=== PATIENT | male | born 1995 | race Caucasian/White ===

== ENCOUNTER 2016-09-03 22:16 | Observation (INO) | payer OTHER ==
[~2016-09-03] VITALS: Ht 182.9 cm; Wt 86.3 kg
[2016-09-03] MEDS ORDERED: NS IV 1000 ML 1,000 ML IV ONE (22:21)
[2016-09-03] MEDS ORDERED: ACTIVATED CHARCOAL/SORBITOL 50 G/240 ML BTL PO ONE (22:30)
[2016-09-03] MEDS ORDERED: TETANUS,DIPTH,PERTUSS P/F (BOOSTRIX) 0.5 ML VIAL IM ONE (22:30)
[2016-09-03 22:31] LABS: BASOPHILS % (AUTO) 1 % (0-10); EOSINOPHILS # (AUTO) 0.1 10^3/uL (0.0-0.3); EOSINOPHILS % (AUTO) 2 % (0-10); LYMPHOCYTES # (AUTO) 3.6 X 10^3 (1.0-4.0); LYMPHOCYTES % (AUTO) 41 % (12-44); MEAN CORPUSCULAR HEMOGLOBIN 30 PG (25-34); MEAN CORPUSCULAR HGB CONC 35 G/DL (32-36); MEAN CORPUSCULAR VOLUME 87 FL (80-99); MEAN PLATELET VOLUME 9.4 FL (7.4-10.4); MONOCYTES # (AUTO) 0.6 X 10^3 (0.0-1.0); MONOCYTES % (AUTO) 7 % (0-12); NEUTROPHILS # (AUTO) 4.4 X 10^3 (1.8-7.8); NEUTROPHILS % (AUTO) 50 % (42-75); PLATELET COUNT 248 10^3/uL (130-400); RED BLOOD COUNT 4.54 10^6/uL (4.35-5.85); RED CELL DISTRIBUTION WIDTH 13.9 % (10.0-14.5); WHITE BLOOD COUNT 8.8 10^3/uL (4.3-11.0)
--- NOTE | 2016-09-03 22:37 | ED Psychosocial ---
General Chief Complaint: Psych/Social Disorder Stated Complaint: laceration Nursing Triage Note: patient with self inflicted L wrist laceration, patient admits to drinking vodka, taking 3 klonopin, and an unknown amount aspirin. patient became beligerant with police and was tazed 3 times Source: patient, police, EMS History of Present Illness Time seen by provider: 22:12 Initial Comments PT ARRIVES VIA EMS WITH [facility] DEPUTY POLICE WERE CALLED FOR A "SUSPICIOUS INDIVIDUAL" WALKING BEHIND THE [facility]-- PT STATED TO THEM HE WAS THERE TO SEE HIS "EX" WHO WORKS THERE, AND WAS CAUSING PROBLEMS THERE ON THEIR ARRIVAL, PT HAD BOTTLE OF VODKA AND DRANK 750 ML IN FRONT OF POLICE. CLAIMS HE "NEVER" DRINKS PT THEN TOOK OUT A KNIFE AND CUT HIS LEFT WRIST AND INDEX FINGER PT BECAME VERY BELLIGERANT WITH THE POLICE AND WAS THEN TAZED AT LEAST 3 TIMES, WITH 5 PRONGS EMBEDDED--2 IN RIGHT ARM, 2 ON BACK, 1 ON RIGHT CALF PT ALSO STATES HE TOOK "4-5 BOTTLES OF ASPIRIN" IMMEDIATELY PRIOR TO THIS WELL--4-5 LOOSE ASPIRIN PILLS WERE FOUND IN PT'S POCKET BY [facility] DEPUTIES-- SIZE OF BOTTLE IS UNKNOWN, OR HOW MANY PILLS WERE IN EACH BOTTLE PT ALSO STATES HE TOOK 3 KLONOPIN WITH THE ASPIRIN. PT ADMITS THAT HE WAS TRYING TO KILL HIMSELF,AND WAS ALREADY FEELING THIS WAY, AND THEN WHEN DEPUTIES ARRIVED, IT ESCALATED HIS INTENT TO HARM HIMSELF. PT IS CURRENTLY UNDER ARREST, AND IS IN HANDCUFFS. PT STATES HE JUST [facility] [place] 3 DAYS AGO , AND HAS BEEN IN MULTIPLE OTHER TREATMENT CENTERS INCLUDING SEVERAL ADMITS TO [facility]. Allergies and Home Medications Allergies Coded Allergies: No Known Drug Allergies (Unverified , 09/03/16) Constitutional: no symptoms reported, other EENTM: no symptoms reported Respiratory: no symptoms reported Cardiovascular: no symptoms reported Gastrointestinal: no symptoms reported Genitourinary: no symptoms reported Musculoskeletal: no symptoms reported Skin: see HPI Psychiatric/Neurological: See HPI Past Ltuxxqb-Lndcas-Jszjvz Hx Patient Social History Alcohol Use: Rarely Uses Recreational Drug Use: Yes (METH, BENZO'S, "OPIATES"--DENIES IV USE) Drug of Choice: meth, benzos Smoking Status: Current Everyday Smoker (1 PPD) Type Used: Cigarettes Recent Foreign Travel: No Contact w/Someone Who Travel: No Recent Infectious Disease Expo: No Recent Hopitalizations: No Immunizations Up To Date Tetanus Booster (TDap): Unknown Seasonal Allergies Seasonal Allergies: No Surgeries HX Surgeries: No Respiratory Hx Respiratory Disorders: No Cardiovascular Hx Cardiac Disorders: No Neurological Hx Neurological Disorders: No Reproductive System Hx Reproductive Disorders: No Genitourinary Hx Genitourinary Disorders: No Gastrointestinal Hx Gastrointestinal Disorders: No Musculoskeletal Hx Musculoskeletal Disorders: No Endocrine Hx Endocrine Disorders: No HEENT HX ENT Disorders: No Cancer Hx Cancer: No Psychosocial Hx Psychiatric Problems: Yes (POLYSUBSTANCE ABUSE) Integumentary HX Skin/Integumentary Disorder: No Blood Transfusions Hx Blood Disorders: No Physical Exam Vital Signs Vital Sign - Last 12Hours 09/03/16 09/04/16 22:19 01:00 Temp 98.3 Pulse 104 Resp 16 B/P (MAP) 128/78 Pulse Ox 96 O2 Delivery Room Air Capillary Refill : Less Than 3 Seconds General Appearance: WD/WN, no apparent distress, other (EXTREMELY MALODOROUS, AND FILTHY. PT IS SOMEWHAT DROWSY, BUT SPEECH IS CLEAR AND PT IS ORIENTED X 4) HEENT: PERRL/EOMI, other (POOR DENTITION) Neck: non-tender, full range of motion, supple, normal inspection Respiratory: normal breath sounds, no respiratory distress, no accessory muscle use Cardiovascular: normal peripheral pulses, regular rate, rhythm, no murmur Gastrointestinal: normal bowel sounds, non tender, soft Extremities: normal range of motion, no pedal edema, normal capillary refill, other (3 CM SUPERFICIAL LACERATION TO LEFT ANTERIOR WRIST, AND 2 CM SUPERFICIAL LACERATION TO DORSAL ASPECT OF LEFT INDEX FINGER. BLEEDING CONTROLLED WITH DRESSING AT THIS TIME. MOTOR/SENSORY/VASCULAR INTACT. ) Neurologic/Psychiatric: director of ancillary services II-XII nml as tested, no motor/sensory deficits, alert, oriented x 3 Appearance/Memory: no memory impairment, disheveled, other (FILTHY AND EXTREMELY MALODOROUS) Behavior/Eye Contact: cooperative, normal speech Thoughts/Hallucinations: no apparent hallucination, No delusions, No flight of ideas, No grandiose, No incoherent, No obsessive, No paranoid, No persecution, No phobic, No jain, other (SUICIDAL IDEATION) Skin: normal color, warm/dry, other (LACERATIONS NOTED ABOVE) Laceration Repair : Other Wound Location LEFT ANTERIOR WRIST 3 CM AND LEFT INDEX FINGER 2 CM--BOTH SUPERFICIAL Wound's Depth, Shape: superficial, linear Wound Explored: clean Betadine Prep?: No (BETASEPT) Anesthesia: Lidocaine w/ Epi (2%) Staple Repair: Stapler 35W (#6 TO WRIST, #2 TO FINGER) Sterile Dressing Applied?: Yes Progress/Results/Core Measures Results/Orders Lab Results Laboratory Tests Test 09/03/16 22:21 09/03/16 23:13 09/04/16 00:15 09/04/16 02:23 Range/Units White Blood Count 8.8 4.3-11.0 10^3/uL Red Blood Count 4.54 4.35-5.85 10^6/uL Hemoglobin 13.6 13.3-17.7 G/DL Hematocrit 39 L 40-54 % Mean Corpuscular Volume 87 80-99 FL Mean Corpuscular Hemoglobin 30 25-34 PG Mean Corpuscular Hemoglobin Concent 35 32-36 G/DL Red Cell Distribution Width 13.9 10.0-14.5 % Platelet Count 248 130-400 10^3/uL Mean Platelet Volume 9.4 7.4-10.4 FL Neutrophils (%) (Auto) 50 42-75 % Lymphocytes (%) (Auto) 41 12-44 % Monocytes (%) (Auto) 7 0-12 % Eosinophils (%) (Auto) 2 0-10 % Basophils (%) (Auto) 1 0-10 % Neutrophils # (Auto) 4.4 1.8-7.8 X 10^3 Lymphocytes # (Auto) 3.6 1.0-4.0 X 10^3 Monocytes # (Auto) 0.6 0.0-1.0 X 10^3 Eosinophils # (Auto) 0.1 0.0-0.3 10^3/uL Basophils # (Auto) 0.0 0.0-0.1 10^3/uL Prothrombin Time 13.7 12.2-14.7 SEC INR Comment 1.1 0.8-1.4 Activated Partial Thromboplast Time 30 24-35 SEC Sodium Level 141 143 135-145 MMOL/L Potassium Level 3.6 3.6 3.6-5.0 MMOL/L Chloride Level 107 109 H 98-107 MMOL/L Carbon Dioxide Level 20 L 20 L 21-32 MMOL/L Anion Gap 14 14 5-14 MMOL/L Blood Urea Nitrogen 12 11 7-18 MG/DL Creatinine 0.80 0.78 0.60-1.30 MG/DL Estimat Glomerular Filtration Rate > 60 > 60 BUN/Creatinine Ratio 15 14 0-20 Glucose Level 95 102 70-105 MG/DL Calcium Level 8.7 8.7 8.5-10.1 MG/DL Magnesium Level 2.5 H 1.8-2.4 MG/DL Total Bilirubin 0.5 0.4 0.1-1.0 MG/DL Aspartate Amino Transf (AST/SGOT) 49 H 50 H 5-34 U/L Alanine Aminotransferase (ALT/SGPT) 22 21 0-55 U/L Alkaline Phosphatase 93 89 40-136 U/L Total Protein 7.6 7.5 6.4-8.2 GM/DL Albumin 4.0 4.0 3.2-4.5 GM/DL Amylase Level 33 25-125 U/L TSH [place] Testing 0.55 0.35-4.94 UIU/ML Salicylates Level 16.1 20.7 H 5.0-20.0 MG/DL Acetaminophen Level < 10 L 10-30 UG/ML Serum Alcohol 90 H 54 H <10 MG/DL Urine Color YELLOW Urine Clarity CLEAR Urine pH 6 5-9 Urine Specific [place] 1.010 L 1.016-1.022 Urine Protein 1+ H NEGATIVE Urine Glucose (UA) NEGATIVE NEGATIVE Urine Ketones NEGATIVE NEGATIVE Urine Nitrite NEGATIVE NEGATIVE Urine Bilirubin NEGATIVE NEGATIVE Urine Urobilinogen NORMAL NORMAL MG/DL Urine Leukocyte Esterase NEGATIVE NEGATIVE Urine RBC (Auto) 1+ H NEGATIVE Urine RBC NONE /HPF Urine WBC NONE /HPF Urine Squamous Epithelial Cells RARE /HPF Urine Crystals NONE /LPF Urine Bacteria NEGATIVE /HPF Urine Casts PRESENT /LPF Urine Hyaline Casts 0-2 H /LPF Urine Mucus SMALL H /LPF Urine Culture Indicated NO Urine Opiates Screen NEGATIVE NEGATIVE Urine Oxycodone Screen NEGATIVE NEGATIVE Urine Methadone Screen NEGATIVE NEGATIVE Urine Propoxyphene Screen NEGATIVE NEGATIVE Urine Barbiturates Screen NEGATIVE NEGATIVE Ur Tricyclic Antidepressants Screen NEGATIVE NEGATIVE Urine Phencyclidine Screen NEGATIVE NEGATIVE Urine Amphetamines Screen NEGATIVE NEGATIVE Urine Methamphetamines Screen NEGATIVE NEGATIVE Urine Benzodiazepines Screen NEGATIVE NEGATIVE Urine Cocaine Screen NEGATIVE NEGATIVE Urine Cannabinoids Screen NEGATIVE NEGATIVE My Orders Orders - TANA MORALES DO Ua Culture If Indicated (09/03/16 22:21) Thyroid Analyzer (09/03/16 22:21) Drug Screen Stat (Urine) (09/03/16 22:21) Cbc With Automated Diff (09/03/16 22:21) Comprehensive Metabolic Panel (09/03/16 22:21) Amylase (09/03/16 22:21) Alcohol (09/03/16 22:21) Acetaminophen (09/03/16 22:21) Salicylate (09/03/16 22:21) Ekg Tracing (09/03/16 22:21) Monitor-Rhythm Ecg Trace Only (09/03/16 22:21) Magnesium (09/03/16 22:21) Protime With Inr (09/03/16 22:21) Partial Thromboplastin Time (09/03/16 22:21) Saline Lock/Iv-Start (09/03/16 22:21) Ns Iv 1000 Ml (Sodium Chloride 0.9%) (09/03/16 22:21) Dipht,Pertuss(Acell),Tet Adult (Boostrix (09/03/16 22:30) Charcoal/Sorbitol Oral Susp (Actidose/So (09/03/16 22:30) Lidocaine/Epi 2% 1:100,000 (Xylocaine/Ep (09/03/16 23:45) Comprehensive Metabolic Panel (09/04/16 00:02) Salicylate (09/04/16 00:02) Alcohol (09/04/16 00:02) Wound Dressing-Ed (09/04/16 00:11) Medications Given in ED Current Medications Medications Dose Ordered Sig/Zeus Route Start Time Stop Time Status Last Admin Dose Admin Charcoal/Sorbitol 50 gm ONCE ONCE PO 09/03/16 22:30 09/03/16 22:31 DC 09/03/16 22:30 50 GM Diphtheria/ Tetanus/Acell Pertussis 0.5 ml ONCE ONCE IM 09/03/16 22:30 09/03/16 22:31 DC 09/03/16 23:32 0.5 ML Lidocaine/ Epinephrine 20 ml ONCE ONCE INJ 09/03/16 23:45 09/03/16 23:46 DC 09/03/16 23:50 5 ML Vital Signs/I&O Vital Sign - Last 12Hours 09/03/16 09/04/16 09/04/16 09/04/16 22:19 00:49 01:00 01:04 Temp 98.3 Pulse 104 88 82 Resp 16 16 B/P (MAP) 128/78 Pulse Ox 96 97 99 O2 Delivery Room Air Blood Pressure Mean: 95 Progress Note : Progress Note [facility] DEPUTIES HAD CALLED [facility] MENTAL HEALTH FROM THE SCENE , AND STAFF MEMBER IS HERE AT 2226--SHE IS UNABLE TO DO A MENTAL HEALTH EVALUATION AT THIS TIME, PT IS UNDER THE INFLUENCE OF ALCOHOL AND HAS OVERDOSED. SHE WILL CONSULT PT WHILE IN HOSPITAL TOMORROW, AFTER HE HAS BEEN MEDICALLY CLEARED 0--PT IS BEING RELEASED FROM CUSTODY AT THIS TIME. PT SLEPT FOR MOST OF ER STAY. AWAKENS TO VERBAL AND TACTILE STIMULI NO DETERIORATION IN PT'S CONDITION DURING ER STAY POISON CONTROL WAS CONTACTED AND RECOMMENDATIONS FOR CHARCOAL TO BE GIVEN AND SERIAL LAB DRAWS EVERY 2 HOURS FOR SALICYLATES AND METABOLIC PANEL WILL BE CARRIED OUT. ECG Initial ECG Impression Time: 23:35 Initial ECG Rate: 97 Initial ECG Rhythm: Normal Sinus Initial ECG Comparisson: No Previous ECG Available Departure Communication Progress Notes [id number]--SPOKE WITH DR. GUZMAN, ACCEPTS PT FOR ADMIT Impression Impression: Primary Impression: SUICIDE ATTEMPT Additional Impressions: INTENTIONAL DRUG OVERDOSE--ASPIRIN Alcohol intoxication SELF INFLICTED LACERATIONS TO LEFT WRIST AND INDEX FINGER Mdlhqyxroc-smolribgc-pnojtkb (DPT) vaccination administered at current visit Disposition: ADMITTED INPATIENT Condition: Stable Decision to Admit Reason: Admit from ER (General) Decision to Admit/Date: Sep 03, 2016 Time/Decision to Admit Time: 23:55 Departure-Patient Inst. Referrals: NO,LOCAL PHYSICIAN (PCP) Primary Care Physician Images Extremities-Upper 1 - Laceration 1 - Laceration TANA MORALES DO Sep 03, 2016 22:37
[2016-09-03 22:38] LABS: INR 1.1 (0.8-1.4); PROTHROMBIN TIME PATIENT 13.7 SEC (12.2-14.7)
[2016-09-03 23:07] LABS: ACETAMINOPHEN < 10 UG/ML (10-30); ALANINE AMINOTRANSFERASE 22 U/L (0-55); ALCOHOL 90 MG/DL (<10); AMYLASE 33 U/L (25-125); ANION GAP 14 MMOL/L (5-14); ASPARTATE AMINO TRANSFERASE 49 U/L (5-34); BILIRUBIN,TOTAL 0.5 MG/DL (0.1-1.0); BLOOD UREA NITROGEN 12 MG/DL (7-18); BUN/CREATININE RATIO 15 (0-20); CALCIUM 8.7 MG/DL (8.5-10.1); CARBON DIOXIDE 20 MMOL/L (21-32); CHLORIDE 107 MMOL/L (98-107); GFR ESTIMATED > 60; GLUCOSE 95 MG/DL (70-105); HEMOLYSIS 21 (-100-29); ICTERUS 0.7 (-100-1.9); LIPEMIA 12 (-100-49); MAGNESIUM 2.5 MG/DL (1.8-2.4); POTASSIUM 3.6 MMOL/L (3.6-5.0); SALICYLATE 16.1 MG/DL (5.0-20.0); SODIUM 141 MMOL/L (135-145); TOTAL PROTEIN 7.6 GM/DL (6.4-8.2)
[2016-09-03 23:29] LABS: BILIRUBIN,URINE NEGATIVE (NEGATIVE); KETONES,URINE NEGATIVE (NEGATIVE); LEUKOCYTE ESTERASE ,URINE NEGATIVE (NEGATIVE); NITRITE,URINE NEGATIVE (NEGATIVE); PH,URINE 6 (5-9); PROTEIN,URINE 1+ (NEGATIVE); UROBILINOGEN,URINE NORMAL (NORMAL)
[2016-09-03 23:43] LABS: HYALINE CASTS, URINE 0-2 /LPF; SQUAMOUS EPITHELIAL CELL,UR RARE /HPF
[2016-09-03] MEDS ORDERED: LIDOCAINE/EPI 2% 1:100,00 (XYLOCAINE) 20 ML VIAL INJ ONE (23:45)
[2016-09-04] VITALS (22 sets, daily range): BP systolic 105–183; BP diastolic 44–84
[2016-09-04 00:40] LABS: ALANINE AMINOTRANSFERASE 21 U/L (0-55); ALCOHOL 54 MG/DL (<10); ANION GAP 14 MMOL/L (5-14); ASPARTATE AMINO TRANSFERASE 50 U/L (5-34); BILIRUBIN,TOTAL 0.4 MG/DL (0.1-1.0); BLOOD UREA NITROGEN 11 MG/DL (7-18); BUN/CREATININE RATIO 14 (0-20); CALCIUM 8.7 MG/DL (8.5-10.1); CARBON DIOXIDE 20 MMOL/L (21-32); CHLORIDE 109 MMOL/L (98-107); CREATININE SERUM 0.78 MG/DL (0.60-1.30); GFR ESTIMATED > 60; GLUCOSE 102 MG/DL (70-105); HEMOLYSIS 16 (-100-29); ICTERUS 0.5 (-100-1.9); LIPEMIA 5 (-100-49); POTASSIUM 3.6 MMOL/L (3.6-5.0); SALICYLATE 20.7 MG/DL (5.0-20.0); SODIUM 143 MMOL/L (135-145); TOTAL PROTEIN 7.5 GM/DL (6.4-8.2)
[2016-09-04] MEDS ORDERED: D5 1/2 NS 1000 ML IV SOLUTION 1,000 ML IV ONE (00:59)
[2016-09-04] MEDS: D5 1/2 NS 1000 ML IV SOLUTION 1,000 ML IV SCH ×3 (01:15→14:51)
[2016-09-04 02:49] LABS: ALANINE AMINOTRANSFERASE 22 U/L (0-55); ANION GAP 13 MMOL/L (5-14); ASPARTATE AMINO TRANSFERASE 52 U/L (5-34); BILIRUBIN,TOTAL 0.5 MG/DL (0.1-1.0); BLOOD UREA NITROGEN 11 MG/DL (7-18); BUN/CREATININE RATIO 14 (0-20); CALCIUM 8.8 MG/DL (8.5-10.1); CARBON DIOXIDE 21 MMOL/L (21-32); CHLORIDE 109 MMOL/L (98-107); GFR ESTIMATED > 60; GLUCOSE 101 MG/DL (70-105); HEMOLYSIS 8 (-100-29); ICTERUS 0.5 (-100-1.9); LIPEMIA 4 (-100-49); POTASSIUM 3.5 MMOL/L (3.6-5.0); SALICYLATE 19.9 MG/DL (5.0-20.0); SODIUM 143 MMOL/L (135-145); TOTAL PROTEIN 7.5 GM/DL (6.4-8.2)
[2016-09-04] MEDS ORDERED: POTASSIUM CL 10MEQ/50ML IVPB 200 ML IV ONE (03:36)
[2016-09-04] MEDS: POTASSIUM CL 10MEQ/50ML IVPB 50 ML IV SCH ×5 (03:47→07:16)
[2016-09-04 04:50] LABS: BASOPHILS % (AUTO) 0 % (0-10); EOSINOPHILS # (AUTO) 0.1 10^3/uL (0.0-0.3); EOSINOPHILS % (AUTO) 1 % (0-10); LYMPHOCYTES % (AUTO) 47 % (12-44); MEAN CORPUSCULAR HEMOGLOBIN 30 PG (25-34); MEAN CORPUSCULAR HGB CONC 34 G/DL (32-36); MEAN CORPUSCULAR VOLUME 88 FL (80-99); MEAN PLATELET VOLUME 9.7 FL (7.4-10.4); MONOCYTES # (AUTO) 0.9 X 10^3 (0.0-1.0); MONOCYTES % (AUTO) 10 % (0-12); NEUTROPHILS # (AUTO) 3.5 X 10^3 (1.8-7.8); NEUTROPHILS % (AUTO) 41 % (42-75); PLATELET COUNT 259 10^3/uL (130-400); RED BLOOD COUNT 4.61 10^6/uL (4.35-5.85); RED CELL DISTRIBUTION WIDTH 14.1 % (10.0-14.5); WHITE BLOOD COUNT 8.5 10^3/uL (4.3-11.0)
[2016-09-04 05:18] LABS: MAGNESIUM 2.8 MG/DL (1.8-2.4); PHOSPHORUS 4.3 MG/DL (2.3-4.7)
[2016-09-04 05:19] LABS: ALANINE AMINOTRANSFERASE 21 U/L (0-55); ANION GAP 11 MMOL/L (5-14); ASPARTATE AMINO TRANSFERASE 52 U/L (5-34); BILIRUBIN,TOTAL 0.5 MG/DL (0.1-1.0); BLOOD UREA NITROGEN 10 MG/DL (7-18); BUN/CREATININE RATIO 11 (0-20); CALCIUM 8.8 MG/DL (8.5-10.1); CARBON DIOXIDE 23 MMOL/L (21-32); CHLORIDE 110 MMOL/L (98-107); CREATININE SERUM 0.89 MG/DL (0.60-1.30); GFR ESTIMATED > 60; GLUCOSE 102 MG/DL (70-105); HEMOLYSIS 7 (-100-29); ICTERUS 0.6 (-100-1.9); LIPEMIA 5 (-100-49); SALICYLATE 22.9 MG/DL (5.0-20.0); SODIUM 144 MMOL/L (135-145); TOTAL PROTEIN 7.4 GM/DL (6.4-8.2)
[2016-09-04] MEDS: MAGNESIUM 1 GM/100 ML IVPB 100 ML IV SCH (06:00)
[2016-09-04] MEDS: KCL 20 MEQ TAB (K-DUR) PO SCH ×2 (06:00→21:03)
[2016-09-04 06:52] LABS: ALANINE AMINOTRANSFERASE 21 U/L (0-55); ALBUMIN 3.9 GM/DL (3.2-4.5); ANION GAP 11 MMOL/L (5-14); ASPARTATE AMINO TRANSFERASE 51 U/L (5-34); BILIRUBIN,TOTAL 0.4 MG/DL (0.1-1.0); BLOOD UREA NITROGEN 10 MG/DL (7-18); BUN/CREATININE RATIO 10 (0-20); CALCIUM 8.6 MG/DL (8.5-10.1); CARBON DIOXIDE 20 MMOL/L (21-32); CHLORIDE 112 MMOL/L (98-107); CREATININE SERUM 0.99 MG/DL (0.60-1.30); GFR ESTIMATED > 60; GLUCOSE 101 MG/DL (70-105); HEMOLYSIS 10 (-100-29); ICTERUS 0.5 (-100-1.9); LIPEMIA 2 (-100-49); POTASSIUM 4.2 MMOL/L (3.6-5.0); SODIUM 143 MMOL/L (135-145); TOTAL PROTEIN 7.2 GM/DL (6.4-8.2)
[2016-09-04 06:54] LABS: SALICYLATE 35.9 MG/DL (5.0-20.0)
[2016-09-04] MEDS ORDERED: SODIUM BICARB 8.4% 50 MEQ/50 ML (ABBOTT) SYR IV NR (07:15)
[2016-09-04] MEDS: SODIUM BICARBONATE 8.4% VIAL 150 MEQ in D5W 1000 ML IV SOLUTION 1,000 ML IV SCH ×2 (07:54→18:38)
[2016-09-04 08:30] LABS: ABG BASE EXCESS 2.2 MMOL/L (-2.5-2.5); ABG HCO3 26 MMOL/L (23-27); ABG OXYGEN SATURATION 99 % (94-100); ABG PCO2 35 MMHG (35-45); ABG PH 7.48 (7.37-7.43); ABG PO2 112 MMHG (79-93); ABG TCO2 26.6 MMOL/L (21.0-31.0)
[2016-09-04 08:31] LABS: ALLENS TEST YES-POS; PATIENT TEMP 98.6
[2016-09-04 08:48] LABS: ALANINE AMINOTRANSFERASE 20 U/L (0-55); ALBUMIN 3.6 GM/DL (3.2-4.5); ANION GAP 10 MMOL/L (5-14); ASPARTATE AMINO TRANSFERASE 48 U/L (5-34); BILIRUBIN,TOTAL 0.4 MG/DL (0.1-1.0); BLOOD UREA NITROGEN 10 MG/DL (7-18); BUN/CREATININE RATIO 11 (0-20); CALCIUM 8.1 MG/DL (8.5-10.1); CARBON DIOXIDE 24 MMOL/L (21-32); CHLORIDE 111 MMOL/L (98-107); CREATININE SERUM 0.95 MG/DL (0.60-1.30); GFR ESTIMATED > 60; GLUCOSE 96 MG/DL (70-105); HEMOLYSIS 28 (-100-29); ICTERUS 0.4 (-100-1.9); LIPEMIA 3 (-100-49); POTASSIUM 4.1 MMOL/L (3.6-5.0); SODIUM 145 MMOL/L (135-145); TOTAL PROTEIN 6.8 GM/DL (6.4-8.2)
[2016-09-04 08:50] LABS: SALICYLATE 33.6 MG/DL (5.0-20.0)
[2016-09-04 10:52] LABS: ALANINE AMINOTRANSFERASE 20 U/L (0-55); ALBUMIN 3.6 GM/DL (3.2-4.5); ANION GAP 9 MMOL/L (5-14); ASPARTATE AMINO TRANSFERASE 46 U/L (5-34); BILIRUBIN,TOTAL 0.4 MG/DL (0.1-1.0); BLOOD UREA NITROGEN 11 MG/DL (7-18); BUN/CREATININE RATIO 13 (0-20); CALCIUM 8.2 MG/DL (8.5-10.1); CARBON DIOXIDE 26 MMOL/L (21-32); CHLORIDE 110 MMOL/L (98-107); CREATININE SERUM 0.87 MG/DL (0.60-1.30); GFR ESTIMATED > 60; GLUCOSE 97 MG/DL (70-105); HEMOLYSIS 10 (-100-29); ICTERUS 0.5 (-100-1.9); LIPEMIA 2 (-100-49); POTASSIUM 3.6 MMOL/L (3.6-5.0); SODIUM 145 MMOL/L (135-145); TOTAL PROTEIN 6.7 GM/DL (6.4-8.2)
[2016-09-04 10:53] LABS: SALICYLATE 30.2 MG/DL (5.0-20.0)
[2016-09-04 10:56] LABS: BILIRUBIN,URINE NEGATIVE (NEGATIVE); KETONES,URINE NEGATIVE (NEGATIVE); LEUKOCYTE ESTERASE ,URINE NEGATIVE (NEGATIVE); NITRITE,URINE NEGATIVE (NEGATIVE); PH,URINE 7 (5-9); PROTEIN,URINE 1+ (NEGATIVE); UROBILINOGEN,URINE NORMAL (NORMAL)
[2016-09-04 11:35] LABS: ABG BASE EXCESS 1.2 MMOL/L (-2.5-2.5); ABG HCO3 24 MMOL/L (23-27); ABG OXYGEN SATURATION 99 % (94-100); ABG PCO2 33 MMHG (35-45); ABG PH 7.49 (7.37-7.43); ABG PO2 104 MMHG (79-93); ABG TCO2 25.3 MMOL/L (21.0-31.0)
[2016-09-04 11:36] LABS: ALLENS TEST YES-POS
--- NOTE | 2016-09-04 12:01 | Diagnostic Imaging Report ---
INDICATION: Short of air. FINDINGS: Upright portable chest shows normal heart size and vascularity. The lungs are clear. There is no effusion or pneumothorax. There is no bony abnormality. IMPRESSION: Normal chest. There is no change from 04/13/12. Dictated by: Dictated on workstation # [id number]
[2016-09-04 12:55] LABS: ALANINE AMINOTRANSFERASE 20 U/L (0-55); ALBUMIN 3.7 GM/DL (3.2-4.5); ANION GAP 9 MMOL/L (5-14); ASPARTATE AMINO TRANSFERASE 49 U/L (5-34); BILIRUBIN,TOTAL 0.4 MG/DL (0.1-1.0); BLOOD UREA NITROGEN 12 MG/DL (7-18); BUN/CREATININE RATIO 14 (0-20); CALCIUM 8.4 MG/DL (8.5-10.1); CARBON DIOXIDE 25 MMOL/L (21-32); CHLORIDE 109 MMOL/L (98-107); CREATININE SERUM 0.84 MG/DL (0.60-1.30); GFR ESTIMATED > 60; GLUCOSE 90 MG/DL (70-105); HEMOLYSIS 6 (-100-29); ICTERUS 0.5 (-100-1.9); LIPEMIA 4 (-100-49); POTASSIUM 3.6 MMOL/L (3.6-5.0); SALICYLATE 27.1 MG/DL (5.0-20.0); SODIUM 143 MMOL/L (135-145)
--- NOTE | 2016-09-04 13:06 | History & Physical-Hospitalist ---
HPI History of Present Illness: HPI/Chief Complaint CC: Acute alcohol intoxication with suicide attempt by swallowing a bottle of aspirin and 3 Klonopin and cutting himself with a knife on his wrist HPI: This is a 21-year-old -Malaysian male that has a known history of drug abuse and alcohol intoxication who presents to the emergency room in custody and handcuffed due to void during around [facility] trying to find his girlfriend who he has 2 children with ages 2 and 1 bit was tased by police officers due to belligerent behavior and was drinking vodka in front of them then reported that he felt like killing himself and took a knife out and cut his wrist and index finger. He took a full bottle of aspirin so poison control was notified he was given charcoal and will be closely monitoring that salicylate level and maintaining bicarbonate in the IV fluids and checking urine acidity to facilitate clearing of that overdose. Currently he denies any pain he does have a one-on-one sitter for suicidal ideation and will be monitored closely and support until mental health screening will ensue tomorrow. Source: patient Exam Limitations: no limitations Date Seen 09/04/16 Time Seen by Provider: 11:00 Attending Physician Katelin Tejada DO PCP No,Local Physician Referring Physician Date of Admission Sep 03, 2016 at 23:55 Home Medications & Allergies Home Medications Reviewed patient Home Medication Reconciliation Form Allergies Allergies Coded Allergies No Known Drug Allergies (Unverified09/03/16) Past Ukhewap-Nreesu-Lehofb Hx Patient Social History Marrital Status: single Employed/Student: unemployed Alcohol Use: Rarely Uses Recreational Drug Use: Yes (METH, BENZO'S, "OPIATES"--DENIES IV USE) Drug of Choice: meth, benzos Smoking Status: Current Everyday Smoker (1 PPD) Type Used: Cigarettes Physical Abuse Screen: No Sexual Abuse: No Recent Foreign Travel: No Contact w/other who traveled: No Recent Hopitalizations: No Recent Infectious Disease Expo: No Immunizations Up To Date Tetanus Booster (TDap): Unknown Seasonal Allergies Seasonal Allergies: No Surgeries HX Surgeries: No Respiratory Hx Respiratory Disorders: No Cardiovascular Hx Cardiovascular Disorders: No Neurological Hx Neurological Disorders: No Reproductive System Hx Reproductive Disorders: No Genitourinary Hx Genitourinary Disorders: No Gastrointestinal Hx Gastrointestinal Disorders: No Musculoskeletal Hx Musculoskeletal Disorders: No Endocrine Hx Endocrine Disorders: No HEENT HX ENT Disorders: No Cancer Hx Cancer: No Psychosocial Hx Psychiatric Problems: Yes (POLYSUBSTANCE ABUSE) Integumentary HX Skin/Integumentary Disorder: No Blood Transfusions Hx Blood Disorders: No Review of Systems Date Seen by Provider: Sep 04, 2016 Time Seen by Provider: 11:00 Constitutional: no symptoms reported EENTM: no symptoms reported Respiratory: no symptoms reported Cardiovascular: no symptoms reported Gastrointestinal: no symptoms reported Genitourinary: no symptoms reported Musculoskeletal: no symptoms reported Skin: no symptoms reported Psychiatric/Neurological: Depressed All Other Systems Reviewed Negative Unless Noted: Yes Physical Exam Physical Exam Vital Signs Vital Sign - Last 12Hours 09/03/16 22:19 Temp 98.3 Pulse 104 Resp 16 B/P (MAP) 128/78 Pulse Ox 96 Capillary Refill : Less Than 3 Seconds General Appearance: No Apparent Distress, WD/WN Eyes: Bilateral Eye Normal Inspection, Bilateral Eye PERRL HEENT: PERRL/EOMI, Normal ENT Inspection, Pharynx Normal Neck: Full Range of Motion, Normal Inspection, Non Tender, Supple, Carotid Bruit Respiratory: Chest Non Tender, Lungs Clear, Normal Breath Sounds, No Accessory Muscle Use, No Respiratory Distress Cardiovascular: Regular Rate, Rhythm, No Edema, No Gallop, No JVD, No Murmur, Normal Peripheral Pulses Gastrointestinal: Normal Bowel Sounds, No Organomegaly, No Pulsatile Mass, Non Tender, Soft Back: Normal Inspection, No CVA Tenderness, No Vertebral Tenderness Extremity: Normal Capillary Refill, Normal Inspection, Normal Range of Motion, Non Tender, No Calf Tenderness, No Pedal Edema Neurologic/Psychiatric: Alert, Oriented x3, No Motor/Sensory Deficits, Normal Mood/Affect Skin: Normal Color, Warm/Dry Lymphatic: No Adenopathy Results Results/Procedures Lab Laboratory Tests 09/03/16 22:21 09/04/16 00:15 09/04/16 02:23 09/04/16 04:22 09/04/16 06:27 09/04/16 08:21 09/04/16 10:24 09/04/16 12:29 Assessment/Plan Admission Diagnosis Assessment: Suicide attempt with a bottle of aspirin 3 Klonopin with vodka and attempted to cut his wrist with a knife History of drug abuse and alcohol abuse Assessment and Plan Plan: Maintain IV fluids with bicarbonate to facilitate salicylate overdose clearance Supportive care Clinical Quality Measures DVT/VTE Risk/Contraindication: Risk Factor Score Per Nursin RFS Level Per Nursing on Admit: 1=Low/No VTE PPX KATELIN TEJADA DO Sep 04, 2016 13:06
[2016-09-04 18:07] LABS: ALANINE AMINOTRANSFERASE 19 U/L (0-55); ALBUMIN 3.6 GM/DL (3.2-4.5); ANION GAP 8 MMOL/L (5-14); ASPARTATE AMINO TRANSFERASE 42 U/L (5-34); BILIRUBIN,TOTAL 0.5 MG/DL (0.1-1.0); BLOOD UREA NITROGEN 13 MG/DL (7-18); BUN/CREATININE RATIO 16 (0-20); CALCIUM 8.4 MG/DL (8.5-10.1); CARBON DIOXIDE 26 MMOL/L (21-32); CHLORIDE 108 MMOL/L (98-107); CREATININE SERUM 0.79 MG/DL (0.60-1.30); GFR ESTIMATED > 60; GLUCOSE 97 MG/DL (70-105); HEMOLYSIS 6 (-100-29); ICTERUS 0.6 (-100-1.9); LIPEMIA 2 (-100-49); POTASSIUM 3.2 MMOL/L (3.6-5.0); SALICYLATE 17.8 MG/DL (5.0-20.0); SODIUM 142 MMOL/L (135-145); TOTAL PROTEIN 6.6 GM/DL (6.4-8.2)
[2016-09-04] MEDS ORDERED: KCL 20 MEQ TAB (K-DUR) PO SCH (21:00)
[2016-09-05] VITALS (16 sets, daily range): BP systolic 104–136; BP diastolic 43–72
[2016-09-05] MEDS: KCL 20 MEQ TAB (K-DUR) PO SCH ×2 (01:09→06:32)
[2016-09-05 05:30] LABS: MEAN PLATELET VOLUME 9.9 FL (7.4-10.4); RED BLOOD COUNT 4.25 10^6/uL (4.35-5.85); RED CELL DISTRIBUTION WIDTH 14.2 % (10.0-14.5); WHITE BLOOD COUNT 8.2 10^3/uL (4.3-11.0)
[2016-09-05] MEDS: SODIUM BICARBONATE 8.4% VIAL 150 MEQ in D5W 1000 ML IV SOLUTION 1,000 ML IV SCH (05:44)
[2016-09-05 05:58] LABS: ALANINE AMINOTRANSFERASE 17 U/L (0-55); ALBUMIN 3.3 GM/DL (3.2-4.5); ANION GAP 8 MMOL/L (5-14); ASPARTATE AMINO TRANSFERASE 35 U/L (5-34); BILIRUBIN,TOTAL 0.3 MG/DL (0.1-1.0); BLOOD UREA NITROGEN 13 MG/DL (7-18); BUN/CREATININE RATIO 17 (0-20); CALCIUM 8.5 MG/DL (8.5-10.1); CARBON DIOXIDE 26 MMOL/L (21-32); CHLORIDE 110 MMOL/L (98-107); CREATININE SERUM 0.77 MG/DL (0.60-1.30); GFR ESTIMATED > 60; GLUCOSE 110 MG/DL (70-105); HEMOLYSIS 14 (-100-29); ICTERUS 0.4 (-100-1.9); LIPEMIA 7 (-100-49); MAGNESIUM 2.2 MG/DL (1.8-2.4); PHOSPHORUS 3.8 MG/DL (2.3-4.7); POTASSIUM 3.9 MMOL/L (3.6-5.0); SODIUM 144 MMOL/L (135-145); TOTAL PROTEIN 6.5 GM/DL (6.4-8.2)
[2016-09-05] MEDS: POTASSIUM CL 10MEQ/50ML IVPB 50 ML IV SCH (06:32)
[2016-09-05] MEDS: MAGNESIUM 1 GM/100 ML IVPB 100 ML IV SCH (06:32)
--- NOTE | 2016-09-05 08:37 | Discharge Summary-Hospitalist ---
Diagnosis/Chief Complaint Date of Admission Sep 03, 2016 at 23:55 Date of Discharge Discharge Date: Sep 05, 2016 Admission Diagnosis Assessment: Suicide attempt with a bottle of aspirin 3 Klonopin with vodka and attempted to cut his wrist with a knife History of drug abuse and alcohol abuse Discharge Diagnosis Assessment: Suicide attempt with a bottle of aspirin 3 Klonopin with vodka and attempted to cut his wrist with a knife History of drug abuse and alcohol abuse Plan: Maintain IV fluids with bicarbonate to facilitate salicylate overdose clearance Supportive care Reason Hospital Visit/Course CC: Acute alcohol intoxication with suicide attempt by swallowing a bottle of aspirin and 3 Klonopin and cutting himself with a knife on his wrist HPI: This is a 21-year-old -Micron[place] male that has a known history of drug abuse and alcohol intoxication who presents to the emergency room in custody and handcuffed due to void during around [facility] trying to find his girlfriend who he has 2 children with ages 2 and 1 bit was tased by police officers due to belligerent behavior and was drinking vodka in front of them then reported that he felt like killing himself and took a knife out and cut his wrist and index finger. He took a full bottle of aspirin so poison control was notified he was given charcoal and will be closely monitoring that salicylate level and maintaining bicarbonate in the IV fluids and checking urine acidity to facilitate clearing of that overdose. Currently he denies any pain he does have a one-on-one sitter for suicidal ideation and will be monitored closely and support until mental health screening will ensue tomorrow. Note from 09/05/16: Patient doing well overall Ready for discharge back to law enforcement capacity after mental health evaluation Labs are normal Blood pressure stable Ready for discharge Discharge Summary Discharge Physical Examination Allergies: Coded Allergies: No Known Drug Allergies (Unverified , 09/03/16) Vitals & I&Os Vital Signs Date Time Temp Pulse Resp B/P (MAP) Pulse Ox O2 Delivery O2 Flow Rate FiO2 09/05/16 05:00 64 14 113/53 98 Room Air 09/05/16 04:00 97.8 Hospital Course Labs (last 24 hrs) Laboratory Tests 09/04/16 10:24: Sodium Level 145, Potassium Level 3.6, Chloride Level 110H, Carbon Dioxide Level 26, Anion Gap 9, Blood Urea Nitrogen 11, Creatinine 0.87, Estimat Glomerular Filtration Rate > 60, BUN/Creatinine Ratio 13, Glucose Level 97, Calcium Level 8.2L, Total Bilirubin 0.4, Aspartate Amino Transf (AST/SGOT) 46H, Alanine Aminotransferase (ALT/SGPT) 20, Alkaline Phosphatase 77, Total Protein 6.7, Albumin 3.6, Salicylates Level 30.2*H 09/04/16 10:32: Urine Color YELLOW, Urine Clarity SLIGHTLY CLOUDY, Urine pH 7, Urine Specific [place] 1.010L, Urine Protein 1+H, Urine Glucose (UA) NEGATIVE, Urine Ketones NEGATIVE, Urine Nitrite NEGATIVE, Urine Bilirubin NEGATIVE, Urine Urobilinogen NORMAL, Urine Leukocyte Esterase NEGATIVE, Urine RBC (Auto) NEGATIVE 09/04/16 11:24: Blood Gas Puncture Site R RADIAL, Blood Gas Patient Temperature 99.0, Arterial Blood pH 7.49H, Arterial Blood Partial Pressure CO2 33L, Arterial Blood Partial Pressure O2 104H, Arterial Blood HCO3 24, Arterial Blood Total CO2 25.3, Arterial Blood Oxygen Saturation 99, Arterial Blood Base Excess 1.2, Addison Test YES-POS, Blood Gas Ventilator Setting NO, Blood Gas Inspired Oxygen ROOM AIR 09/04/16 12:29: Sodium Level 143, Potassium Level 3.6, Chloride Level 109H, Carbon Dioxide Level 25, Anion Gap 9, Blood Urea Nitrogen 12, Creatinine 0.84, Estimat Glomerular Filtration Rate > 60, BUN/Creatinine Ratio 14, Glucose Level 90, Calcium Level 8.4L, Total Bilirubin 0.4, Aspartate Amino Transf (AST/SGOT) 49H, Alanine Aminotransferase (ALT/SGPT) 20, Alkaline Phosphatase 79, Total Protein 7.0, Albumin 3.7, Salicylates Level 27.1H 09/04/16 17:41: Sodium Level 142, Potassium Level 3.2L, Chloride Level 108H, Carbon Dioxide Level 26, Anion Gap 8, Blood Urea Nitrogen 13, Creatinine 0.79, Estimat Glomerular Filtration Rate > 60, BUN/Creatinine Ratio 16, Glucose Level 97, Calcium Level 8.4L, Total Bilirubin 0.5, Aspartate Amino Transf (AST/SGOT) 42H, Alanine Aminotransferase (ALT/SGPT) 19, Alkaline Phosphatase 77, Total Protein 6.6, Albumin 3.6, Salicylates Level 17.8 09/05/16 05:15: Sodium Level 144, Potassium Level 3.9, Chloride Level 110H, Carbon Dioxide Level 26, Anion Gap 8, Blood Urea Nitrogen 13, Creatinine 0.77, Estimat Glomerular Filtration Rate > 60, BUN/Creatinine Ratio 17, Glucose Level 110H, Calcium Level 8.5, Total Bilirubin 0.3, Aspartate Amino Transf (AST/SGOT) 35H, Alanine Aminotransferase (ALT/SGPT) 17, Alkaline Phosphatase 77, Total Protein 6.5, Albumin 3.3, Salicylates Level 6.0, White Blood Count 8.2, Red Blood Count 4.25L, Hemoglobin 12.6L, Hematocrit 38L, Mean Corpuscular Volume 88, Mean Corpuscular Hemoglobin 30, Mean Corpuscular Hemoglobin Concent 34, Red Cell Distribution Width 14.2, Platelet Count 226, Mean Platelet Volume 9.9, Phosphorus Level 3.8, Magnesium Level 2.2 Microbiology 09/04/16 MRSA Screen - Final, Complete MRSA not isolated Pending Labs Laboratory Tests 09/05/16 05:15: White Blood Count 8.2, Red Blood Count 4.25, Hemoglobin 12.6, Hematocrit 38, Mean Corpuscular Volume 88, Mean Corpuscular Hemoglobin 30, Mean Corpuscular Hemoglobin Concent 34, Red Cell Distribution Width 14.2, Platelet Count 226, Mean Platelet Volume 9.9, Sodium Level 144, Potassium Level 3.9, Chloride Level 110, Carbon Dioxide Level 26, Anion Gap 8, Blood Urea Nitrogen 13, Creatinine 0.77, Estimat Glomerular Filtration Rate > 60, BUN/Creatinine Ratio 17, Glucose Level 110, Calcium Level 8.5, Phosphorus Level 3.8, Magnesium Level 2.2, Total Bilirubin 0.3, Aspartate Amino Transf (AST/SGOT) 35, Alanine Aminotransferase ( ALT/SGPT) 17, Alkaline Phosphatase 77, Total Protein 6.5, Albumin 3.3, Salicylates Level 6.0 Discharge Instructions to patient/family Please see electonic discharge instructions given to patient. Clinical Quality Measures DVT/VTE Risk/Contraindication: Risk Factor Score Per Nursin RFS Level Per Nursing on Admit: 1=Low/No VTE PPX FREDY GUZMAN DO Sep 05, 2016 08:37
--- OUTSIDE RECORDS SUMMARY | 2016-09-05 17:40 | XMS REPORT | Continuity of Care Document ---
Author Author [employer] Organization [facility] Address Unknown Phone Unavailable Care Team Providers Care Tube Puller Name Role Phone [employer] Unavailable Unavailable Problems Problem Status Onset Date Classification Date Reported Comments Source Discharge from penis (finding) 05/09/2016 Diagnosis 05/13 Count Includes [facility] No data available for this section Problem 05/19/2015 [facility] Medications Medication Details Route Status Patient Instructions Ordering Provider Order Date Source No Known Medications No known medications Active Count Includes [facility] Allergies, Adverse Reactions, Alerts Immunizations Immunization Date Given Site Status Last Updated Comments Source No data available for this section No data available for this section Count Includes [facility], [facility] Results Vital Signs Encounters Location Location Details Encounter Type Encounter Number Reason For Visit Attending Provider ADM Date DC Date Status Source [facility] [id number] Outpatient [id number] Physician Non-Staff 05/15/2015 05/15/2015 Active [facility] [id number] Adam Ames 05/09/2016 05/10/2016 Count Includes [facility] Procedures Procedure Code Date Perfomer Comments Source Circumcision, surgical excision other than clamp, device, or dorsal slit; (28 days of age or less) [id number] 1993 Count Includes [facility] No data available for this section [facility] Plan of Care Social History Assessment and Plan Family History Value Date Source Advance Directives Order Name Results Value Date Source
--- OUTSIDE RECORDS SUMMARY | 2016-09-05 17:40 | XMS REPORT | Continuity of Care Document ---
Author Author [facility] Organization [facility] Address Unknown Phone Unavailable Care Team Providers Care Quiller Tender Name Role Phone AlexandraTristian MD PP Insurance Providers Payer Name Policy Number Subscriber Name Relationship [employer] Door To Door Salesperson/Police Lazaro Noel 18 Self / Same As Patient Advance Directives Directive Response Recorded Date Advanced Directives Unknown 12/01/12 3: 42pm Problems Medical Problem Onset Date Acute stress disorder 11/24/11 Altered mental status 12/01/12 Cellulitis 04/13/12 Deep venous thrombosis of upper extremity 03/31/12 Depression 11/24/11 Drug abuse 03/30/12 Fever 03/31/12 Pain in elbow 03/30/12 Swelling 03/31/12 Vomiting 04/13/12 Allergies, Adverse Reactions, Alerts Allergen Type Severity Reaction Last Updated No Known Allergies Allergy 03/30/12 Medications Medication Dose Units Route Sig Qty Days Acetaminophen (Tylenol Tab) 1 - 2 Tab PO PRN Clindamycin Hcl (Cleocin Hcl) 1 Cap PO QID Warfarin Sodium (Coumadin) 1 Tab PO EVERY OTHER DAY Warfarin Sodium (Coumadin) 1 Tab PO EVERY OTHER DAY Warfarin Sodium (Coumadin) 5 Mg PO DAILY 30 Response Recorded Date/Time Status not known Unknown Results Test Date Result Interp. Ref. Range Acetaminophen Level November 24, 2011 4:30pm < 10.0 UG/ML L 10.0-30.0 Activated Partial Thromboplast Time 2012 11: 12pm 50.7 SEC H 25.0- 39.0 Alanine Aminotransferase (ALT/SGPT) December 01, 2012 4: 00pm 38 U/L N 30-65 Albumin December 01, 2012 4:00pm 4.5 G/ DL N 3.4-5.0 Albumin/Globulin Ratio December 01, 2012 4:00pm 3.6 H 1.1-1.8 Alkaline Phosphatase December 01, 2012 4:00pm 84 U/L N 38-126 Aspartate Amino Transf (AST/SGOT) December 01, 2012 4:00pm 44 U/L H 15-37 BUN/Creatinine Ratio December 01, 2012 4:00pm 14 N 10-20 Band Neutrophils % April 13, 2012 8:25pm 1 % N 0-6 Basophils # (Auto) December 01, 2012 4:00pm 0.1 10^3/uL - Basophils % April 13, 2012 8:25pm 1 % N 0-1 Basophils (%) (Auto) December 01, 2012 4:00pm 1 % N 0-2 Blood Morphology Comment April 13, 2012 8:25pm Normal - Blood Urea Nitrogen December 01, 2012 4:00pm 10 MG/DL N 7-18 Calcium Level December 01, 2012 4:00pm 9.8 MG/DL N 8.8-10.8 Calcium/Ionized Calcium Ratio December 01, 2012 4:00pm 4.00 mg/dL - Calculated Osmolality December 01, 2012 4:00pm 270 MOSM/L L 280-300 Carbon Dioxide Level December 01, 2012 4:00pm 23 MMOL/L N 22-29 Chloride Level December 01, 2012 4:00pm 104 MMOL/L N 98-108 Creatinine December 01, 2012 4:00pm 0.70 mg/dL L 0.8-1.5 D-Dimer December 01, 2012 4:00pm 0.27 ug/mL N 0.00-0.41 Differential Total Cells Counted April 13, 2012 8:25pm 100 - Eosinophils # (Auto) December 01, 2012 4:00pm 0.1 10^3/uL - Eosinophils % April 13, 2012 8:25pm 0 % N 0-5 Eosinophils (%) (Auto) December 01, 2012 4:00pm 1 % N 0-4 Estimat Glomerular Filtration Rate December 01, 2012 4: 00pm 175.8 - Estimated GFR (Non- December 01, 2012 4: 00pm 145.3 - Glucose Level December 01, 2012 4:00pm 96 MG/DL N 70-110 Hematocrit December 01, 2012 4:00pm 40.30 % N 39.00-50.00 Hemoglobin December 01, 2012 4:00pm 14.1 g/dL N 13.5-17.0 Lymphocytes # (Auto) December 01, 2012 4:00pm 3.2 X 10^3 - Lymphocytes % April 13, 2012 8:25pm 8 % L 16-34 Lymphocytes (%) (Auto) December 01, 2012 4:00pm 39 % N 20-46 Mean Corpuscular Hemoglobin December 01, 2012 4:00pm 29.5 PG N 26.0-34.0 Mean Corpuscular Hemoglobin Concent December 01, 2012 4: 00pm 35.0 g/dL N 31.0- 37.0 Mean Corpuscular Volume December 01, 2012 4:00pm 84 FL N 80-100 Mean Platelet Volume December 01, 2012 4:00pm 9.5 FL N 6.0-9.5 Metamyelocytes % April 13, 2012 8:25pm 0 % N 0-1 Monocytes # (Auto) December 01, 2012 4:00pm 0.6 X 10^3 - Monocytes % April 13, 2012 8:25pm 3 % N 2-12 Monocytes (%) (Auto) December 01, 2012 4:00pm 8 % N 3-11 Neutrophils # (Auto) December 01, 2012 4:00pm 4.3 X 10^3 - Neutrophils (%) (Auto) December 01, 2012 4:00pm 52 % N 51-67 Platelet Count December 01, 2012 4:00pm 285 10^3/uL N 150-450 Potassium Level December 01, 2012 4:00pm 3.8 MMOL/L N 3.5-5.1 Prothromb Time International Ratio 2012 11:12pm 1.1 N 0.8-1.4 Prothrombin Time 2012 11:12pm 15.5 SEC H 12.3-14.4 Red Blood Count December 01, 2012 4:00pm 4.78 10^6/uL N 4.50-5.50 Red Cell Distribution Width December 01, 2012 4:00pm 12.8 % N 11.8-15.6 Salicylates Level November 24, 2011 4:30pm < 1.0 MG/DL L 2.0-20.0 Segmented Neutrophils % April 13, 2012 8:25pm 87 % H 50-73 Serum Alcohol December 01, 2012 4:00pm < 10.0 mg/dL L 10-80 Sodium Level December 01, 2012 4:00pm 141 MMOL/L N 135-150 Thyroid Stimulating Hormone (TSH) November 24, 2011 4:30pm 0.63 UIU/ML N 0.46- 4.68 Total Bilirubin December 01, 2012 4:00pm 0.5 MG/DL N 0.1-1.0 Total Protein December 01, 2012 4:00pm 8.1 G/DL N 6.4-8.5 Urine Amorphous Sediment 2012 2:25pm 4+ /HPF H - Urine Amphetamines Screen December 01, 2012 5:15pm Negative - Urine Bacteria 2012 2:25pm None seen /HPF - Urine Barbiturates Screen December 01, 2012 5:15pm Negative - Urine Benzodiazepines Screen December 01, 2012 5:15pm Negative - Urine Bilirubin December 01, 2012 5:15pm Negative - Urine Blood December 01, 2012 5:15pm Negative - Urine Cannabinoids Screen December 01, 2012 5:15pm Negative - Urine Clarity December 01, 2012 5:15pm Clear - Urine Cocaine Screen December 01, 2012 5:15pm Negative - Urine Collection Type December 01, 2012 5:15pm Random voided - Urine Color December 01, 2012 5:15pm Yellow - Urine Glucose (UA) December 01, 2012 5:15pm Negative - Urine Ketones December 01, 2012 5:15pm Negative - Urine Leukocyte Esterase December 01, 2012 5:15pm Negative - Urine Methamphetamines Screen December 01, 2012 5:15pm Not available - Urine Mucus 2012 2:25pm 4+ H - Urine Nitrite December 01, 2012 5:15pm Negative - Urine Opiates Screen December 01, 2012 5:15pm Negative - Urine Oxycodone Screen December 01, 2012 5:15pm Na - Urine Phencyclidine Screen December 01, 2012 5:15pm Negative - Urine Propoxyphene Screen December 01, 2012 5:15pm Na - Urine Protein December 01, 2012 5:15pm Negative - Urine RBC 2012 2:25pm None seen /HPF - Urine Specific [place] December 01, 2012 5:15pm 1.015 - Urine Squamous Epithelial Cells 2012 2:25pm 5-10 /LPF - Urine Urobilinogen December 01, 2012 5:15pm 0.2 mg/dL - Urine WBC 2012 2:25pm None seen /HPF - Urine pH December 01, 2012 5:15pm 7.5 - White Blood Count December 01, 2012 4:00pm 8.20 10^3/uL N 4.0-11.0 Procedures Procedure Code Date COMPREHEN METABOLIC PANEL 67665 12/01/12 ASSAY OF ETHANOL 39528 12/01/12 COMPLETE CBC W/AUTO DIFF WBC 42364 FIBRIN DEGRADATION QUANT 38418 12/01/12 ROUTINE VENIPUNCTURE 31193 12/01/12 URINALYSIS AUTO W/O SCOPE 55043 12/01/12 CT HEAD/BRAIN W/O DYE 87968 12/01/12 CT NECK SPINE W/O DYE 64208 12/01/12 EMERGENCY DEPT VISIT 12357 12/01/12 ELECTROCARDIOGRAM TRACING 74203 12/01/12 J1885 12/01/12 J7030 12/01/12 Blood Culture 03/30/12 Encounters Encounter Location Date/Time Registered Emergency Room [facility] 12/01/12 3:48pm Departed Emergency Room [facility] 04/13/12 7:34pm
--- OUTSIDE RECORDS SUMMARY | 2016-09-05 17:40 | XMS REPORT | Clinical Summary ---
Author Author Admin, [facility] Organization [facility] Address Unknown Phone Unavailable Allergies, Adverse Reactions, Alerts Allergy Name Reaction Description Start Date Severity Status Provider Allergies Unknown Conditions or Problems Problem Name Problem Code Onset Date Status Entry Date Provider Comment Standard Description Annotate HEALTH EXAMINATION OF DEFINED SUBPOPULATION V70.5 Active Olive Parson LPN Health examination of defined subpopulations Medication List Medication Instructions Start Date Stop Date Generic Name NDC Status Provider Patient Instruction Drug Treatment Unknown - unknown Procedures Code Procedure Name Date Entry Date Standard Description CPT-69637 Spec Collection and Handling Fee 09:51:28 EYEWEAR CONSULTANT
--- OUTSIDE RECORDS SUMMARY | 2016-09-05 17:40 | XMS REPORT | Clinical Summary ---
Author Author Admin, [facility] Organization [facility] Address Unknown Phone Unavailable Allergies, Adverse Reactions, [...] Procedure Name Date Entry Date Standard Description CPT-25961 Spec Collection and Handling Fee 09:51:28 FIRE SPRINKLER FITTER
--- OUTSIDE RECORDS SUMMARY | 2016-09-05 17:40 | XMS REPORT ---
Author Author [employer] Organization Unknown Address Unknown Phone Unavailable Care Team Providers Care Design Technology Teacher Name Role Phone UNASSIGNED DOCTOR , DOCTOR PP Reason For Visit Chief Complaint LT AC WOUND INFECTION POST OP I AND D Social History Functional Status Vital Signs Results Problems Encounter Diagnosis No relevant problems exist. Additional Problems * Abscess Comment:Problem resolved by [employer] Workflow upon Discharge, Status: Resolved. * Acute Pain Comment:Problem resolved by [employer] Workflow upon Discharge, Status :Resolved. * Infection Risk Comment:Problem resolved by [employer] Workflow upon Discharge, Status:Resolved. Encounters Encounter Diagnosis No relevant problems exist. Plan of Care Procedures * Completed left antecubtial fascia abscess irrigation and debridement, Left, by MD DAYO DUKES, on 06/04/2016 11:26 AM Immunizations No immunizations administered or ordered. Hospital Course Hospital Discharge Instructions Allergies, Adverse Reactions, Alerts * Latex Allergy has not been assessed. * IV Contrast Allergy has not been assessed. * No Known Drug Allergies. Medication Medication reconciliation has not been performed.
--- OUTSIDE RECORDS SUMMARY | 2016-09-05 17:40 | XMS REPORT | Continuity of Care Document ---
Author Author [facility] Address Unknown Phone Unavailable Care Team Providers Care Label Printer Name Role Phone Nicola Plaza MD PCP Insurance Providers Payer Name Policy Number Subscriber Name Relationship Self Pay Lazaro Noel 18 Self / Same As Patient Advance Directives Directive Response Recorded Date/Time Advanced Directives No 07/27/16 12:15am Chief Complaint and Reason for Visit Chief Complaint Pain Reason for Visit Cellulitis Problems Active Problems Medical Problem Onset Date Status Acute stress disorder 11/24/2011 Acute Altered mental status 12/01/2012 Resolved Cellulitis 04/13/2012 Acute Deep venous thrombosis of upper extremity 03/31/2012 Acute Dental abscess ~05/22/2013 Acute Depression 11/24/2011 Acute Drug abuse 2012 Acute Feeling suicidal 11/24/2011 Resolved Fever 03/31/2012 Acute Left against medical advice Unknown Acute Pain in elbow 2012 Acute Swelling 03/31/2012 Acute Thrombophlebitis arm Unknown Acute Vomiting 04/13/2012 Acute Medications Current Home Medications Medication Dose Units Route Directions Days/Qty Instructions Start Date Acetaminophen 500 Mg 1 - 2 Tab ORAL As Needed 04/13/12 Ibuprofen (Motrin) 800 Mg 800 Mg ORAL as needed for Prn 05/22/13 Phenol 177 Ml 177 Ml SUBMUCOSAL as needed for Prn 05/22/13 Cephalexin 500 Mg 500 Mg ORAL Four Times Daily 28 07/25/16 Past Home Medications Medication Directions Ordered Status Warfarin Sodium 5 Mg Tablet, 5 Mg Oral Daily 03/30/12 Discontinued Warfarin Sodium 5 Mg Tablet, 1 Tab Oral Every Other Day 04/13/12 Discontinued Warfarin Sodium 7.5 Mg Tablet, 1 Tab Oral Every Other Day 04/13/12 Discontinued Clindamycin Hcl 300 Mg Capsule, 1 Cap Oral Four Times Daily 04/13/12 Discontinued Social History Query Response Start Date Stop Date Smoking Status Current every day smoker Hospital Discharge Instructions No hospital discharge instructions. Plan of Care Discharge Date 07/27/16 12:44am Disposition 01 HOME OR SELF-CARE Condition at Discharge Stable Instructions/Education Provided Cellulitis (Skin Infection), Adult (DC) Prescriptions See Medication Section Referrals Nicola Plaza MD - Additional Instructions/Education See your doctor tomorrow for follow up care. If your arm is no better in 24 hours, you may need to be admitted to the hospital for IV antibiotics. Some of your test results may not be complete prior to your leaving the Emergency Department. The Emergency Department is not authorized to give test results over the phone. Please contact the doctor's office listed in this packet of information for your final results. Follow up with your primary care physician or return to the Emergency Department for worsening or worrisome symptoms. * Emergency Department phone number: [phone], x [phone] MEDICAL RECORD If you need copies of your X-rays, call [phone]. If you need copies of your medical record, including lab results, a signed authorization for release of records will be required. A telephone call for release of Health Information is not allowed. BILLING Billing can sometimes be confusing and frustrating. To help avoid confusion in the future, please take a moment to acquaint yourself with the billing parties for services. SERVICE BILLING [employer] Emergency Room Services [facility] Physician Services [facility] X-rays [facility] Patients will receive bills for services from the appropriate provider. If you have any questions about your [facility] bill, our staff will be happy to assist you. Please call [phone], and ask for the billing department. THANK YOU for choosing [facility] as your emergency care provider! Care Plan and Goals Follow instructions as given and take meds as prescribed. Functional Status No functional status results. Allergies, Adverse Reactions, Alerts Allergen Type Severity Reaction Status Last Updated No Known Allergies Allergy Unknown Active 07/25/16 Immunizations Name Given Type Status Date Influenza Vaccine Received if Current 01/25/13 Historical Historical Vital Signs Acute Vital Signs Vital Response Date/Time Temperature (Fahrenheit) 98.5 07/27/2016 12:54am Pulse 109 bpm 07/27/2016 12:54am Respirations 20 07/27/2016 12:54am Height 6 ft 4 in Weight 191 lb Body Mass Index 23.0 kg/m^2 Results No known relevant diagnostic tests, laboratory data and/or discharge summary. Procedures No known history of procedures. Encounters Encounter Location Arrival/Admit Date Discharge/Depart Date Attending Provider Departed Emergency Room [facility] 07/27/16 12:04am 07/27/16 12: 44am GEMA ZARCO DO Departed Emergency Room [facility] 07/25/16 10:54pm 07/25/16 11: 43pm DAMARIS HORN MD Registered Clinic [facility] 07/12/16 5:12pm UNKNOWN Recent Diagnosis
--- OUTSIDE RECORDS SUMMARY | 2016-09-05 17:40 | XMS REPORT | Continuity of Care Document ---
Author Author [facility] Organization [facility] Address Unknown Phone Unavailable Allergies Active Description Code Type Severity Reaction Onset Reported/Identified Relationship to Patient Clinical Status Yes No Known Allergies Miscellaneous Allergy Unknown N/A 02/08/2013 Yes No Known Allergies NKMA N/A N/A 05/25/2015 Yes No Known Allergies [id number] Drug Allergy Unknown N/A 07/27/2016 Medications Problems Date Dx Coded Attending Type Code Diagnosis Diagnosed By 03/31/2012 Sanjeev Rasheed MD 041.09 BACTERIAL INFECTION DUE TO OTHER STREPTOCOCCUS 03/31/2012 Sanjeev Rasheed MD 296.20 DEPRESS DISORDER-UNSPEC 03/31/2012 Sanjeev Rasheed MD 300.02 GENERALIZED ANXIETY DIS 03/31/2012 Sanjeev Rasheed MD 305.1 TOBACCO USE DISORDER 03/31/2012 Sanjeev Rasheed MD 305.20 CANNABIS ABUSE-UNSPEC 03/31/2012 Sanjeev Rasheed MD 305.90 DRUG ABUSE NEC-UNSPEC 03/31/2012 Sanjeev Rasheed MD 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 03/31/2012 Sanjeev Rasheed MD 451.82 PHLEBITIS THROMBOPHLEBITIS,SUP VEINS UPPER EXTR 03/31/2012 Sanjeev Rasheed MD 682.3 CELLULITIS OF ARM 03/31/2012 Sanjeev Rasheed MD 719.02 JOINT EFFUSION-UP/ARM 03/31/2012 Sanjeev Rasheed MD V06.6 PROPHYLACTIC VACC AGNST STREPTOCOCCUS PNEUM INFL 03/31/2012 Sanjeev Rasheed MD V12.51 HX-VENOUS THROMBOSIS EMBOLISM 03/31/2012 Sanjeev Rasheed MD V15.81 HX OF PAST NONCOMPLIANCE 02/15/2013 Nova Moulton Other 815.00 FX METACARPAL NOS-CLOSED 05/22/2013 ABE RIVERA MD P Ot 521.00 UNSPEC DENTAL CARIES 05/22/2013 ABE RIVERA MD P Ot 525.9 DENTAL DISORDER NOS 06/01/2015 Jomar Benton MD Final M79.604 Pain in right leg 06/01/2015 Jomar Benton MD Final M79.605 Pain in left leg 06/01/2015 Jomar Benton MD Reason R11.2 Nausea with vomiting, unspecified 06/01/2016 JAVAD ZHAO MD Ot L98.9 DISORDER OF THE SKIN AND SUBCUTANEOUS TI 06/06/2016 JAVAD ZHAO MD Ot L98.9 DISORDER OF THE SKIN AND SUBCUTANEOUS TI 06/08/2016 JAVAD ZHAO MD, Ot L98.9 DISORDER OF THE SKIN AND SUBCUTANEOUS TI 06/09/2016 SANJEEV PEREZ F1510 Other stimulant abuse, uncomplicated 06/09/2016 SANJEEV PEREZ E36574 Cellulitis of left upper limb 06/09/2016 SANJEEV PEREZ Z19850 Abscess of tendon sheath, left forearm 06/09/2016 SANJEEV PEREZ H45502 Other specified postprocedural states 06/09/2016 DAY MCKEON F1510 Other stimulant abuse, uncomplicated 06/09/2016 DAY MCKEON K06571 Nicotine dependence, cigarettes, uncomplicated 06/09/2016 DAY MCKEON P62923 Cutaneous abscess of left upper limb 06/09/2016 DAY MCKEON N22037 Cellulitis of left upper limb 07/15/2016 Ot Z53.20 PROC/TRTMT NOT CRD OUT BEC PT DECISION F 07/25/2016 Ot Z53.20 PROC/TRTMT NOT CRD OUT BEC PT DECISION F 08/01/2016 DAMARIS HORN MD Ot I80.8 PHLEBITIS AND THROMBOPHLEBITIS OF OTHER 08/01/2016 DAMARIS HORN MD Ot M79.631 PAIN IN RIGHT FOREARM 08/03/2016 GEMA ZARCO DO Ot F17.210 NICOTINE DEPENDENCE, CIGARETTES, UNCOMPL 08/03/2016 GEMA ZARCO DO Ot I80.8 PHLEBITIS AND THROMBOPHLEBITIS OF OTHER 08/03/2016 GEMA ZARCO DO Ot L03.113 CELLULITIS OF RIGHT UPPER LIMB 08/03/2016 GEMA ZARCO DO Ot Z87.898 PERSONAL HISTORY OF OTHER SPECIFIED COND 08/03/2016 BETTY LÓPEZ MD Ot F17.210 NICOTINE DEPENDENCE, CIGARETTES, UNCOMPL 08/03/2016 BETTY LÓPEZ MD, Ot L03.113 CELLULITIS OF RIGHT UPPER LIMB 08/03/2016 BETTY LÓPEZ MD, Ot M79.631 PAIN IN RIGHT FOREARM 08/03/2016 BETTY LÓPEZ MD, Ot Z87.898 PERSONAL HISTORY OF OTHER SPECIFIED COND 08/03/2016 BETTY LÓPEZ MD, Ot Z91.19 PATIENT'S NONCOMPLIANCE W [facility] 08/05/2016 BETTY LÓPEZ MD, Ot F17.210 NICOTINE DEPENDENCE, CIGARETTES, UNCOMPL 08/05/2016 BETTY LÓPEZ MD, Ot L03.113 CELLULITIS OF RIGHT UPPER LIMB 08/05/2016 BETTY LÓPEZ MD, Ot M79.631 PAIN IN RIGHT FOREARM 08/05/2016 BETTY LÓPEZ MD, Ot Z87.898 PERSONAL HISTORY OF OTHER SPECIFIED COND 08/05/2016 BETTY LÓPEZ MD, Ot Z91.19 PATIENT'S NONCOMPLIANCE W [facility] Procedures Code Description Performed By Performed On 86.04 OTHER SKIN SUBQ I D Jasper POOLE, Marlon Gay 03/31/2012 [id number] 06/03/2016 [id number] 06/04/2016 [id number] 06/04/2016 Results Test Result Range CBC W/MANUAL DIFF - 03/31/12 07:10 MEAN CELL HGB 29.2 pg 27.0-33.0 MEAN CELL HGB CONCENTRATION 34.5 g/dL 32.0-37.0 MEAN CELL VOLUME 84.7 fl 80.0-100.0 RED BLOOD CELL 4.38 m/cumm 4.00-6.00 RED CELL DISTRIBUTION WIDTH 12.6 % 11.0- 15.6 WHITE BLOOD CELL 7.3 k/cumm 5.0-10.0 HEMOGLOBIN 12.8 gm/dL 14.0-18.0 HEMATOCRIT 37.1 % 40.0-54.0 PLATELET COUNT 190 k/cumm 150-400 MANUAL DIFF(O) - 03/31/12 07:10 BAND % 2 % 0-10 GRANULOCYTE # 4.1 k/cumm 2.0-9.0 LYMPHOCYTE # 2.3 k/cumm 1.0-4.0 LYMPHOCYTE % 31 % 20-30 DIFFERENTIAL MANUAL MONOCYTE # 0.9 k/cumm 0.1-1.0 MONOCYTE % 13 % 4-6 RBC MORPH NOTED SEGMENTED NEUTROPHIL % 54 % 50-70 PROTHROMBIN TIME WITH INR - 03/31/12 07:10 INTERNATIONAL NORMAL RATIO 1.2 0.9-1.1 PROTHROMBIN TIME 13.1 sec 9.3-12.2 METABOLIC PANEL, COMPREHN - 03/31/12 07:10 POTASSIUM 3.9 mmol/L 3.5-5.3 EST GFR (MDRD) > 60 mL/min > 59 ANION GAP 8 mmol/L 5-15 GLUCOSE 109 mg/dL 70-99 CALCIUM 8.5 mg/dL 8.5-10.1 BLOOD UREA NITROGEN 10 mg/dL 7-20 CREATININE 0.9 mg/dL 0.8-1.3 SODIUM 138 mmol/L 135-148 CHLORIDE 103 mmol/L 98-110 AST/SGOT 25 Units/L 10-37 ALT/SGPT 32 Units/L < 66 CARBON DIOXIDE 27 mmol/L 21-32 TOTAL PROTEIN 7.4 gm/dL 6.4-8.2 ALBUMIN 3.4 gm/dL 3.4-5.0 BILI TOTAL 0.5 mg/dL 0.0-1.0 ALKALINE PHOSPHATASE TOTAL 68 Units/L 50- 136 MAGNESIUM - 03/31/12 07:10 MAGNESIUM 1.9 mg/dL 1.8-2.4 PHOSPHORUS - 03/31/12 07:10 PHOSPHORUS 4.1 mg/dL 2.5-4.9 CREATINE KINASE (CK/CPK) - 03/31/12 07:10 CREATINE KINASE (CK/CPK) 57 Units/L < 309 TROPONIN I - 03/31/12 07:10 TROPONIN I < 0.02 ng/mL < 0.07 HEPATITIS PANEL-ACUTE - 03/31/12 07:10 AB HEPATITIS A IGM NEGATIVE NEGATIVE AG HEPATITIS B SURF. NEGATIVE NEGATIVE AB HEPATITIS B CORE IGM NEGATIVE NEGATIVE AB HEPATITIS C NEGATIVE NEGATIVE C REACTIVE PROTEIN - 03/31/12 07:10 C REACTIVE PROTEIN 54.4 mg/L < 8.0 SED RATE - 03/31/12 07:10 SED RATE 20 mm/hr 0-7 AB HIV 1 2 - 03/31/12 07:10 AB HIV 1 2 NEGATIVE NEGATIVE BLOOD CULTURE - 03/31/12 07:10 Uncategorized BLOOD CULTURE - 03/31/12 07:10 Uncategorized CBC W/DIFF - 04/01/12 04:22 GRANULOCYTE # 5.8 k/cumm 2.0-9.0 GRANULOCYTE % 65 % 50-75 LYMPHOCYTE # 2.1 k/cumm 1.0-4.0 LYMPHOCYTE % 24 % 20-30 MEAN CELL HGB 28.6 pg 27.0-33.0 MEAN CELL HGB CONCENTRATION 33.9 g/dL 32.0-37.0 MEAN CELL VOLUME 84.3 fl 80.0-100.0 MONOCYTE # 0.9 k/cumm 0.1-1.0 MONOCYTE % 10 % 4-6 RED BLOOD CELL 4.20 m/cumm 4.00-6.00 RED CELL DISTRIBUTION WIDTH 12.4 % 11.0- 15.6 WHITE BLOOD CELL 9.0 k/cumm 5.0-10.0 HEMOGLOBIN 12.0 gm/dL 14.0-18.0 HEMATOCRIT 35.4 % 40.0-54.0 PLATELET COUNT 184 k/cumm 150-400 PROTHROMBIN TIME WITH INR - 04/01/12 04:22 INTERNATIONAL NORMAL RATIO 1.4 0.9-1.1 PROTHROMBIN TIME 14.9 sec 9.3-12.2 METABOLIC PANEL, BASIC - 04/01/12 04:22 POTASSIUM 4.0 mmol/L 3.5-5.3 EST GFR (MDRD) > 60 mL/min > 59 ANION GAP 8 mmol/L 5-15 GLUCOSE 104 mg/dL 70-99 CALCIUM 8.6 mg/dL 8.5-10.1 BLOOD UREA NITROGEN 7 mg/dL 7-20 CREATININE 0.8 mg/dL 0.8-1.3 SODIUM 137 mmol/L 135-148 CHLORIDE 104 mmol/L 98-110 CARBON DIOXIDE 25 mmol/L 21-32 VANCOMYCIN TROUGH - 04/01/12 20:02 VANCOMYCIN TROUGH 8.8 mcg/mL 5.0-20.0 PROTHROMBIN TIME WITH INR - 04/02/12 06:40 INTERNATIONAL NORMAL RATIO 1.3 0.9-1.1 PROTHROMBIN TIME 13.8 sec 9.3-12.2 GRAM STAIN - 04/02/12 12:00 Uncategorized HIV 1 antibody detection by rapid immunoassay - 03/29/16 10:45 HIV 1 antibody detection by rapid immunoassay Negative Negative HIV 1+2 Ab+HIV1 p24 Ag - 03/29/16 10:45 HIV 1+2 Ab+HIV1 p24 Ag Negative Negative Internal QC - 03/29/16 10:45 Internal QC OK OK CBC WITH PLATELET AND DIFFERENTIAL - 06/03/16 23:23 WBC 11.3 10*3/uL 3.6-11.2 RBC 4.76 4.06-5.63 HEMOGLOBIN 13.6 12.5-16.3 HEMATOCRIT 40.4 % 36.7-47.1 MCV 84.9 fL 80.0-100.0 MCH 28.6 pg 27.0-33.0 MCHC 33.6 32.0-36.0 RDW 12.9 % 12.3-17.0 MPV 7.6 fL 7.4-10.4 PLATELETS 388 10*3/uL 159-386 SEGS 62.6 % NRG *LYMPHOCYTES 27.3 % NRG *MONOCYTES 5.5 % NRG *EOSINOPHILS 0.7 % NRG *BASOPHILS 3.9 % NRG *ABSOLUTE NEUTROPHILS 7.10 10*3/uL 1.80- 7.80 *ABSOLUTE LYMPHOCYTES 3.10 10*3/uL 1.00- 3.00 *ABSOLUTE MONOCYTES 0.60 10*3/uL 0.30- 1.00 *ABSOLUTE EOSINOPHILS 0.10 10*3/uL 0.00- 0.50 *ABSOLUTE BASOPHILS 0.40 10*3/uL 0.00- 0.20 AUTOMATED DIFF PERFORMED NRG LACTIC ACID - 06/03/16 23:23 LACTIC ACID 2.4 0.9-1.7 PROTHROMBIN TIME - 06/03/16 23:23 *PROTHROMBIN TIME 11.4 s 9.4-11.5 *INR 1.1 0.9-1.1 PARTIAL THROMBOPLASTIN TIME - 06/03/16 23:23 PARTIAL THROMBOPLASTIN TIME 26.9 s 23.0- 31.0 COMPREHENSIVE METABOLIC PANEL - 06/03/16 23:23 TOTAL PROTEIN 8.5 6.4-8.2 ALBUMIN 3.6 3.4-5.0 *GLOBULIN 4.9 2.3-3.5 *A/G RATIO 0.7 1.5-2.2 BILIFUBIN TOTAL 0.30 0.20-1.00 ALK PHOS 86 U/L 46-116 ALT (SGPT) 19 U/L 14-59 AST (SGOT) 15 U/L 15-37 GFR ESTIMATION - 06/03/16 23:23 *GFR EST NON AFR FRENCH >90 mL/min NRG *GRFA EST AFR AMER >90 mL/min NRG CULTURE BLOOD - 06/03/16 23:23 CULTURE BLOOD No growth after 5 days of incubation. NRG CULTURE BLOOD - 06/03/16 23:29 CULTURE BLOOD No growth after 5 days of incubation. NRG LACTIC ACID - 06/04/16 03:33 LACTIC ACID 0.6 0.9-1.7 ALCOHOL - 06/04/16 03:33 ALCOHOL <0.003 NRG HIV-1/2 AB-RAPID SCREEN - 06/04/16 07:08 HIV 1/2 RAPID SCREEN NON-REACTIVE NON- REACTIVE HEPATITIS PANEL (4) (ACUTE) - 06/04/16 07:08 HEP A AB IGM Negative Negative HEP B CORE AB IGM Negative Negative *HCV AB <0.1 0.0-0.9 HEP B SURFACE AG Negative Negative CULTURE WOUND - 06/04/16 11:53 CULTURE WOUND Moderate growth NRG CULTURE ANAEROBIC - 06/04/16 11:53 CULTURE ANAEROBIC Prevotella oralis group~Rare growth NRG ISOLATE3 - 06/04/16 11:53 ORGANISM Prevotella oralis NRG Beta lactamase =- NRG IDENTIFICATION, DEFINITIVE ANAEROBIC - 06/04/16 11:53 IDENTIFICATION, DEFINITIVE ANAEROBIC FINAL NRG Encounters ACCT No. Visit Date/Time Discharge Status Pt. Type Provider Facility Loc./Unit Complaint [id number] 03/31/2012 01:51:00 2012 17:08:00 DIS Inpatient Kathya POOLE, Sanjeev العلي [facility] [id number]
--- OUTSIDE RECORDS SUMMARY | 2016-09-05 17:40 | XMS REPORT ---
Author Author GENERATED, SYSTEM Organization Unknown Address Unknown Phone Unavailable Care Team Providers Care Senior Net Programmer Name Role Phone MD BURR JONATHAN PP Reason For Visit Reason for Visit from 06/04/2016 5:20 AM:* Pt Stated Reason for Adm : abcess left antecubital fassa Chief Complaint ABSCESS LEFT ANTECUBITAL FOSSA Social History Social History from 06/04/2016 5:20 AM:* Tobacco Use? : Current Everyday Smoker Functional Status Functional Status from 06/04/2016 12:45 PM:* LOC : Alert Functional Status from 06/04/2016 12:18 PM:* LOC : Drowsy Functional Status from 06/04/2016 7:37 AM:* LOC : Alert * Oriented To : Person,Place,Time,Event * Weight Bearing Status : Full * Assist Level : Independent * # Assists : Independent Functional Status from 06/04/2016 5:20 AM:* LOC : Alert * Oriented To : Person,Place,Time,Event * Weight Bearing Status : Full * Assist Level : Independent * # Assists : Independent Vital Signs Hospital Vital Signs from 06/04/2016 1:08 PM:* Height : 6/4 ft,in * Pulse : 88 * Respirations : 18 * BP : 130/60 Hospital Vital Signs from 06/04/2016 1:01 PM:* Height : 6/4 ft,in * Temperature : 97.0 F * Pulse : 91 * Respirations : 18 * BP : 137/63 Hospital Vital Signs from 06/04/2016 12:40 PM:* Temp : 98.2 * Heart Rate : 78 * Systolic BP (mmHg) : 109 * Diastolic BP (mmHg) : 69 * Mean BP (mmHg) : 83 * O2 Saturation (%) : 99 Hospital Vital Signs from 06/04/2016 12:35 PM:* Heart Rate : 81 * Systolic BP (mmHg) : 108 * Diastolic BP (mmHg) : 70 * Mean BP (mmHg) : 84 * O2 Saturation (%) : 100 Hospital Vital Signs from 06/04/2016 12:30 PM:* Heart Rate : 78 * Systolic BP (mmHg) : 106 * Diastolic BP (mmHg) : 67 * Mean BP (mmHg) : 85 * O2 Saturation (%) : 100 Hospital Vital Signs from 06/04/2016 12:25 PM:* Heart Rate : 80 * Systolic BP (mmHg) : 110 * Diastolic BP (mmHg) : 58 * Mean BP (mmHg) : 74 * O2 Saturation (%) : 100 Hospital Vital Signs from 06/04/2016 12:20 PM:* Heart Rate : 78 * Systolic BP (mmHg) : 109 * Diastolic BP (mmHg) : 66 * Mean BP (mmHg) : 84 * O2 Saturation (%) : 100 Hospital Vital Signs from 06/04/2016 12:15 PM:* Temp : 98 * Systolic BP (mmHg) : 109 * Diastolic BP (mmHg) : 60 * Mean BP (mmHg) : 77 Hospital Vital Signs from 06/04/2016 7:35 AM:* Height : 6/4 ft,in * Temperature : 97.1 F * Pulse : 89 * Respirations : 18 * BP : 122/57 Hospital Vital Signs from 06/04/2016 5:20 AM:* Weight : 84.2/ kg * Weight : 84.2/ kg * Height : 6/4 ft,in * Height : 6/4 ft,in * Temperature : 97.3 F * Pulse : 80 * Respirations : 18 * BP : 138/77 Results Serology from 06/04/2016 7:08 AMHIV 1/2 RAPID SCREEN NON-REACTIVE (NON-REACTIVE ) Problems Encounter Diagnosis * Abscess Status:Active. * Acute Pain Status:Active. * Infection Risk Status:Active. Encounters Encounter Diagnosis * Abscess Status:Active. * Acute Pain Status:Active. * Infection Risk Status:Active. Plan of Care Treatment Plan from 06/04/2016 10:32 AM:* Care Management Note : Admission status: Inpatient Patient presented to ER for evaluation of arm pain. Patient reports "shooting" himself with meth approx. 5 days ago and the injection site is not swollen and painful. labs and vital signs noted. Lactic acid 2.4. WBC 11.3. CT: Irregular fluid collection and the soft tissues of the left upper extremity at the level of the antecubital fossa, most suggestive of a soft tissue abscess. POC: Consulted Orthopedics - patient is going to surgery today for irrigation and debridement of left elbow. Follow vital signs with oximetry. Up ad andriy. Drug screen pending. IVF at 75. Started IV Vancomycin and Zosyn. patient stay is anticipated longer than 2 midnights. meets inpatient status at this time for treatment of an abscess. Procedures * Completed left antecubtial fascia abscess irrigation and debridement, Left, by MD DAYO DUKES, on 06/04/2016 11:26 AM Immunizations No immunizations administered or ordered. Hospital Course Hospital Discharge Instructions Allergies, Adverse Reactions, Alerts * No Latex Allergy. * No IV Contrast Allergy. * No Known Drug Allergies. Medication Medication reconciliation has not been performed.
--- OUTSIDE RECORDS SUMMARY | 2016-09-05 17:41 | XMS REPORT | Clinical Summary ---
Author Author Admin, E Organization [facility] Address Unknown Phone Unavailable Allergies, Adverse Reactions, [...] Procedure Name Date Entry Date Standard Description CPT-25273 Spec Collection and Handling Fee 16:35:13 CDT CPT-94353 Spec Collection and Handling Fee 09:51:28 CARDIOPULMONARY TECHNICIAN
--- OUTSIDE RECORDS SUMMARY | 2016-09-05 17:41 | XMS REPORT | Referral Summary ---
Author Author [facility] Organization [facility] Address Unknown Phone Unavailable Care Team Providers Care Analysis Analyst Name Role Phone No PCP, Pt States PCP Encounter VC Date(s): 05/25/15 - 05/25/15 [facility] [address] [place] [address] [phone] Discharge Disposition: Attending Physician: Jomar Benton MD Admitting Physician: Jomar Betnon MD Vital Signs Most recent to 1 oldest [Reference Range]: Temperature Oral 36.7 degC [35.8-37.3 degC] (05/25/15 12:13 PM) Peripheral Pulse 133 bpm Rate [60-100 bpm] *HI* (05/25/15 12:13 PM) Respiratory Rate 24 br/min [14-20 br/min] *HI* (05/25/15 12:13 PM) Blood Pressure 131/83 mmHg [90-140/60-90 mmHg] (05/25/15 12:13 PM) SpO2 99 % (05/25/15 12:13 PM) Problem List Condition Effective Dates Status Health Status Informant No Chronic Problems Active Tobacco Active patient use(Confirmed) Allergies, Adverse Reactions, Alerts No Known Allergies Medications methadone Oral, 0 Refill(s) Start Date: 05/25/15 Status: Ordered Results Chemistry Most recent to 1 oldest [Reference Range]: Sodium Venous 141 mEq/L [136-144 mEq/L] (05/25/15 12:44 PM) Potassium Venous 3.9 mEq/L 1 [3.6-5.1 mEq/L] (05/25/15 12:44 PM) Calcium Ionized 1.18 mmol/L Venous [1.19-1.41 *LOW* mmol/L] (05/25/15 12:44 PM) Total CO2 Venous 18 mEq/L [25-29 mEq/L] *LOW* (05/25/15 12:44 PM) HGB Venous NPT 17.3 gm/dL [14.0-16.0 gm/dL] *HI* (05/25/15 12:44 PM) HCT Venous 51.0 % [42.0-52.0 %] (05/25/15 12:44 PM) Glucose Venous 173 mg/dL [70-100 mg/dL] *HI* (05/25/15 12:44 PM) BUN Venous [4-20] 8 (05/25/15 12:44 PM) Creatinine Venous 0.6 mg/dL [0.7-1.2 mg/dL] *LOW* (05/25/15 12:44 PM) Venous CL [99-109 105 mEq/L mEq/L] (05/25/15 12:44 PM) Anion Gap, Dionisio 18 [3-20] (05/25/15 12:44 PM) 1Result Comment: This test was performed on a whole blood specimen. The presence or absence of hemolysis cannot be assessed. Hemolysis can falsely elevate potassium levels. Normals are for venous specimens only. Immunizations No data available for this section Procedures No data available for this section Social History Social History Type Response Smoking Status Current every day smoker; Type: Cigarettes; Tobacco use per day: 1 Pack Assessment and Plan No data available for this section
--- OUTSIDE RECORDS SUMMARY | 2016-09-05 17:41 | XMS REPORT | Clinical Summary ---
Author Author Admin, E Organization [facility] Address Unknown Phone Unavailable Allergies, Adverse [...] Procedure Name Date Entry Date Standard Description CPT-60279 Spec Collection and Handling Fee 16:35:13 CDT CPT-46489 Spec Collection and Handling Fee 09:51:28 PRINTING SPECIALIST
--- OUTSIDE RECORDS SUMMARY | 2016-09-05 17:41 | XMS REPORT | Clinical Summary ---
Author Author Admin, [facility] Organization [facility] Address Unknown Phone Unavailable Allergies, Adverse [...] Procedure Name Date Entry Date Standard Description CPT-56246 Spec Collection and Handling Fee 09:51:28 ROBOTIC TOY INVENTOR
--- OUTSIDE RECORDS SUMMARY | 2016-09-05 17:41 | XMS REPORT | Continuity of Care Document ---
Author Author [facility] Address Unknown Phone Unavailable Care Team Providers Care Banquet Coordinator Name Role Phone Nicola Plaza MD PCP Insurance Providers Payer Name Policy Number Subscriber Name Relationship Self Pay Lazaro Noel 18 Self / Same As Patient Advance Directives Directive Response Recorded Date/Time Advanced Directives No 07/27/16 1:35pm Chief Complaint and Reason for Visit Chief Complaint Tissue Condition Reason for Visit Cellulitis Problems Active Problems Medical Problem Onset Date Status Acute stress disorder 11/24/2011 Acute Altered mental status 12/01/2012 Resolved Cellulitis 04/13/2012 Acute Cellulitis Unknown Acute Deep venous thrombosis of upper extremity [...] Mg ORAL as needed for Prn 05/22/13 Cephalexin 500 Mg 500 Mg ORAL Four Times Daily 28 07/25/16 Acetaminophen/Hydrocodone Bitart 1 Each 1 Tab ORAL Every 6 Hours as needed for Pain 12 07/27/16 Past Home Medications Medication Directions Ordered Status Warfarin Sodium 5 Mg Tablet, 5 Mg Oral Daily 03/30/12 Discontinued Warfarin Sodium 5 Mg Tablet, 1 Tab Oral Every Other Day 04/13/12 Discontinued Warfarin Sodium 7.5 Mg Tablet, 1 Tab Oral Every Other Day 04/13/12 Discontinued Clindamycin Hcl 300 Mg Capsule, 1 Cap Oral Four Times Daily 04/13/12 Discontinued Phenol 177 Ml [place], 177 Ml Submucosal as needed for Prn 05/22/13 Discontinued Social History Query Response Start Date Stop Date Smoking Status Current every day smoker Hospital Discharge Instructions No hospital discharge instructions. Plan of Care Discharge Date 07/27/16 1:53pm Disposition 01 HOME OR SELF-CARE Condition at Discharge Stable Instructions/Education Provided Cellulitis (Skin Infection), Adult (DC) Prescriptions See Medication Section Referrals Nicola Plaza MD - Additional Instructions/Education Continue antibiotics. Follow up with primary care physician as directed previously. Return with worsening or changing signs or symptoms. Some of your test results may not [...] worrisome symptoms. * Emergency Department phone number: [phone], x [phone] MEDICAL RECORD If you need copies of your X-rays, call [phone]. If you need copies of [...] the billing parties for services. SERVICE BILLING [employer] Emergency Room Services [facility] Physician Services [facility] X-rays [facility] Patients will receive bills for services from the appropriate provider. If you have any questions about your [facility] bill, our staff will be happy to assist you. Please call [phone], and ask for the billing department. THANK YOU for choosing [facility] as your emergency care provider! Care Plan and Goals ~~Discharge Care Plan~~ Problem: Rash/hives Goal: Decreased redness, itching, and blotches. Instructions: Take medication(s) as directed. Keep a log of medication times and dosages to avoid over or under dosage. Avoid triggers that cause your rash or hives. Functional Status No functional status results. Allergies, Adverse Reactions, Alerts Allergen Type Severity Reaction Status Last Updated No Known Allergies Allergy Unknown Active 07/27/16 Immunizations Name Given Type Status Date Influenza Vaccine Received if Current 01/25/13 Historical Historical Vital Signs Acute Vital Signs Vital Response Date/Time Temperature (Fahrenheit) 98.2 07/27/2016 1:54pm Pulse 110 bpm 07/27/2016 1:54pm Respirations 20 07/27/2016 1:54pm Height 6 ft 4 in Weight 186 lb Body Mass Index 22.0 kg/m^2 Results No known relevant diagnostic tests, laboratory data and/or discharge summary. Procedures No known history of procedures. Encounters Encounter Location Arrival/Admit Date Discharge/Depart Date Attending Provider Departed Emergency Room [facility] 07/27/16 1:30pm 07/27/16 1:53pm BETTY LÓPEZ MD Departed Emergency Room [facility] 07/27/16 12:04am 07/27/16 12: 44am GEMA ZARCO DO Departed Emergency Room [facility] 07/25/16 10:54pm 07/25/16 11: 43pm DAMARIS HORN MD Registered Clinic [facility] 07/12/16 5:12pm UNKNOWN Recent Diagnosis
--- OUTSIDE RECORDS SUMMARY | 2016-09-05 17:41 | XMS REPORT | Continuity of Care Document ---
Author Author [facility] Address Unknown Phone Unavailable Care Team Providers Care Chief Wharfinger Name Role Phone Nicola Plaza MD PCP Insurance Providers Payer Name Policy Number Subscriber Name Relationship Self Pay Lazaro Noel 18 Self / Same As Patient Advance Directives Directive Response Recorded Date/Time Advanced Directives No 07/25/16 11:03pm Chief Complaint and Reason for Visit Chief Complaint Injury Reason for Visit [id number] Problems Active Problems Medical Problem Onset Date [...] discharge instructions. Plan of Care Discharge Date 07/25/16 11:43pm Disposition 01 HOME OR SELF-CARE Condition at Discharge Stable Prescriptions See Medication Section Referrals Nicola Plaza MD - Additional Instructions/Education Warm compress or heat to area as often as possible. 20 minutes on 45 minutes off to 1 hour off. Take medications as directed until gone. Avoid IV access to that area until healed. Follow-up with family physician as needed Continue ibuprofen. Use 800 mg 3 times a day Some of your test results may not [...] worrisome symptoms. * Emergency Department phone number: [phone], x [phone]* MEDICAL RECORD If you need copies of your X-rays, call [phone] x [phone]. If you need copies of [...] the billing parties for services. SERVICE BILLING DEMOCRAT Emergency Room Services [facility] Physician Services [facility] X-rays [facility] Patients will receive bills for services from the appropriate provider. If you have any questions about your [facility] bill, our staff will be happy to assist you. Please call [phone], and ask for the billing department. THANK YOU for choosing [facility] as your emergency care provider! Care Plan and Goals ~~Discharge Care Plan~~ Problem: Goal: Instructions: Functional Status No functional status results. Allergies, Adverse Reactions, Alerts Allergen Type Severity Reaction Status Last Updated No Known Allergies Allergy Unknown Active 07/25/16 Immunizations Name Given Type Status Date Influenza Vaccine Received if Current 01/25/13 Historical Historical Vital Signs Acute Vital Signs Vital Response Date/Time Temperature (Fahrenheit) 98.2 07/25/2016 11:03pm Pulse 114 bpm 07/25/2016 11:03pm Respirations 20 07/25/2016 11:03pm Height 6 ft 4 in Weight 200 lb Body Mass Index 24.0 kg/m^2 Results No known relevant diagnostic tests, laboratory data and/or discharge summary. Procedures No known history of procedures. Encounters Encounter Location Arrival/Admit Date Discharge/Depart Date Attending Provider Departed Emergency Room [facility] 07/25/16 10:54pm 07/25/16 11: 43pm DAMARIS HORN MD Registered Clinic [facility] 07/12/16 5:12pm UNKNOWN Recent Diagnosis
--- OUTSIDE RECORDS SUMMARY | 2016-09-05 17:41 | XMS REPORT ---
Author Author [employer], SYSTEM Organization Unknown Address Unknown Phone Unavailable Care Team Providers Care Healthcare Interpreter Name Role Phone UNASSIGNED DOCTOR , DOCTOR PP Reason For Visit Chief Complaint LT SHOULDER/ARM POST SURGERY Social History Functional Status Vital Signs Results [...] abscess irrigation and debridement, Left, by MD KARUNA DUKESNATHAN, on 06/04/2016 11:26 AM Immunizations No immunizations administered or ordered. Hospital Course Hospital Discharge Instructions Allergies, Adverse Reactions, Alerts * Latex Allergy has not been assessed. * IV Contrast Allergy has not been assessed. * No Known Drug Allergies. Medication Medication reconciliation has not been performed.
--- OUTSIDE RECORDS SUMMARY | 2016-09-05 17:53 | XMS REPORT | Continuity of Care Document ---
Author Author [employer] Organization [facility] Address Unknown Phone Unavailable Care Team Providers Care Independent Driver Name Role Phone [employer] Unavailable Unavailable Problems Problem Status Onset Date Classification Date Reported Comments Source Discharge from penis (finding) 05/09/2016 Diagnosis 05/13 [facility] No data available for this section Problem 05/19/2015 [facility] Medications Medication Details Route Status Patient Instructions Ordering Provider Order Date Source No Known Medications No known medications Active [facility] Allergies, Adverse Reactions, Alerts Immunizations Immunization Date Given Site Status Last Updated Comments Source No data available for this section No data available for this section [facility], [facility] Results Vital Signs Encounters Location Location Details Encounter Type Encounter Number Reason For Visit Attending Provider ADM Date DC Date Status Source [facility] [id number] Outpatient [id number] Physician Non-Staff 05/15/2015 05/15/2015 Active [facility] [id number] Adam Ames 05/09/2016 05/10/2016 [facility] Procedures Procedure Code Date Perfomer Comments Source Circumcision, surgical excision other than clamp, device, or dorsal slit; (28 days of age or less) [address]42 1993 [facility] No data available for this section [facility] Plan of Care Social History Assessment and Plan Family History Value Date Source Advance Directives Order Name Results Value Date Source
--- OUTSIDE RECORDS SUMMARY | 2016-09-05 17:54 | XMS REPORT | Continuity of Care Document ---
Author Author [facility] Organization [facility] Address Unknown Phone Unavailable Allergies Active Description Code Type Severity Reaction Onset Reported/Identified Relationship to Patient Clinical Status Yes No Known Allergies Miscellaneous Allergy Unknown N/A 02/08/2013 Yes No Known Allergies NKMA N/A N/A 05/25/2015 Yes No Known Allergies [id number] Drug Allergy Unknown N/A 07/27/2016 Medications Problems Date Dx Coded Attending Type Code Diagnosis Diagnosed By 03/31/2012 Sanjeev Rasheed MD 041.09 BACTERIAL INFECTION DUE TO OTHER STREPTOCOCCUS 03/31/2012 Sanjeev Rasheed MD 296.20 DEPRESS DISORDER-UNSPEC 03/31/2012 Sanjeev Rasheed MD 300.02 GENERALIZED ANXIETY DIS 03/31/2012 Sanjeev Rasheed MD 305.1 TOBACCO USE DISORDER 03/31/2012 Sanjeev Rasheed MD 305.20 CANNABIS ABUSE-UNSPEC 03/31/2012 Sanjeev aRsheed MD 305.90 DRUG ABUSE NEC-UNSPEC 03/31/2012 Sanjeev [...] Other stimulant abuse, uncomplicated 06/09/2016 SANJEEV PEREZ Q63456 Cellulitis of left upper limb 06/09/2016 SANJEEV PEREZ K16780 Abscess of tendon sheath, left forearm 06/09/2016 SANJEEV PEREZ I95731 Other specified postprocedural states 06/09/2016 DAY [facility]KEON F1510 Other stimulant abuse, uncomplicated 06/09/2016 DAY [facility] P06891 Nicotine dependence, cigarettes, uncomplicated 06/09/2016 [facility] I32031 Cutaneous abscess of left upper limb 06/09/2016 [facility] S04104 Cellulitis of left upper limb 07/15/2016 Ot [...] LÓPEZ MD, Ot Z91.19 PATIENT'S NONCOMPLIANCE W [facility] 08/05/2016 BETTY LÓPEZ MD, Ot F17.210 NICOTINE DEPENDENCE, CIGARETTES, UNCOMPL 08/05/2016 BETTY LÓPEZ MD, Ot L03.113 CELLULITIS OF RIGHT UPPER LIMB 08/05/2016 BETTY LÓPEZ MD, Ot M79.631 PAIN IN RIGHT FOREARM 08/05/2016 BETTY LÓPEZ MD, Ot Z87.898 PERSONAL HISTORY OF OTHER SPECIFIED COND 08/05/2016 BETTY LÓPEZ MD, Ot Z91.19 PATIENT'S NONCOMPLIANCE W [facility] Procedures Code Description Performed By Performed On 86.04 OTHER SKIN SUBQ I D Jasper POOLE, Marlon Gay 03/31/2012 [id number] 06/03/2016 [id number] 06/04/2016 [id number] 06/04/2016 Results Test Result Range CBC W/MANUAL [...] - 06/03/16 23:23 *GFR EST NON AFR BURKINAN >90 mL/min NRG *GRFA EST AFR AMER [...] Status Pt. Type Provider Facility Loc./Unit Complaint [id number] 03/31/2012 01:51:00 2012 17:08:00 DIS Inpatient Kathya POOLE, Sanjeev العلي [facility] [id number]
== END 2016-09-05 15:15 | disposition home or self-care (01) ==
LOC: ER 22:20 → ICU 23:55
PROVIDERS: ADMIT Internal Medicine; ATTEND Internal Medicine
DX: T39.012A Poisoning by aspirin, intentional self-harm, initial encounter (principal); S61.512A Laceration without foreign body of left wrist, initial encounter; S61.211A Laceration without foreign body of left index finger without damage to nail, initial encounter; Z23 Encounter for immunization; F17.210 Nicotine dependence, cigarettes, uncomplicated; X78.1XXA Intentional self-harm by knife, initial encounter; Y92.411 Interstate highway as the place of occurrence of the external cause; Y99.8 Other external cause status
CPT/HCPCS: 12002; 36415; 71010; 80053; 80306; 80320; 80329; 81000; 81002; 82150; 82805; 83735; 84100; 84443; 85025; 85027; 85610; 85730; 87081; 90471; 90715; 93005; 93041; G0378

== ENCOUNTER 2017-03-20 20:07 | Emergency (ER) | payer SELFPAY ==
[~2017-03-20] VITALS: Ht 195.6 cm; Wt 90.7 kg
--- OUTSIDE RECORDS SUMMARY | 2017-03-20 20:12 | XMS REPORT ---
Author Author [facility] Address Unknown Phone Unavailable Care Team Providers Care Assignment Agent Name Role Phone No Family Physician, . PCP Unavailable Encounter [id number] Date(s): 05/09/16 - 05/09/16 Formerly [facility] [address] [place], [place] [phone] Attending Physician: Adam Ames MD Vital Signs No data available for this section Problem List Diagnosis Diagnosis Type Effective Dates Health Status Clinical Service Informant Abnormal penile Discharge 05/09/16 discharge Diagnosis Allergies, Adverse Reactions, Alerts No data available for this section Medications No Known Medications Results No data available for this section Immunizations No data available for this section Procedures Procedure Date Related Diagnosis Body Site Circumcision, surgical excision other than 93 clamp, device, or dorsal slit; (28 days of age or less) Social History No data available for this section Assessment and Plan No data available for this section
--- OUTSIDE RECORDS SUMMARY | 2017-03-20 20:12 | XMS REPORT ---
Author Author [facility] Organization [facility] Address Unknown Phone Unavailable Care Team Providers Care Insurance And Benefits Clerk Name Role Phone No Family Physician, . PCP Unavailable Encounter [id number] Date(s): 05/15/15 - 05/15/15 [facility] [phone] [place] [address] [facility] Attending Physician: Non-Staff, Physician Admitting Physician: Non-Staff, Physician Referring Physician: No Family Physician, . Non-Staff Vital Signs No data available for this section Problem List No data available for this section Allergies, Adverse Reactions, Alerts No data available for this section Medications No data available for this section Results No data available for this section Immunizations No data available for this section Procedures No data available for this section Social History No data available for this section Assessment and Plan No data available for this section
--- OUTSIDE RECORDS SUMMARY | 2017-03-20 20:12 | XMS REPORT | Continuity of Care Document ---
Author Author [employer] Organization [facility] Address Unknown Phone Unavailable Care Team Providers Care Junior Brand Manager Name Role Phone [employer] Unavailable Unavailable Problems Problem Status Onset Date Classification Date Reported Comments Source Discharge from penis (finding) 05/09/2016 Diagnosis 05/13 [facility] Medications Medication Details Route Status Patient Instructions Ordering Provider Order Date Source No Known Medications No known medications Active [facility] Allergies, Adverse Reactions, Alerts Immunizations Results Vital Signs Encounters Location Location Details Encounter Type Encounter Number Reason For Visit Attending Provider ADM Date DC Date Status Source [facility] [id number] Outpatient [id number] Physician Non-Staff 05/15/2015 05/15/2015 Active [facility] Outpatient [id number] Physician Non-Staff 05/15/2015 05/16/2015 [facility] [place]. [facility] [id number] Clinic ( Outpatient) [id number] Aadm Pereze 05/09/2016 Active [facility] [id number] Adam Ames 05/09/2016 05/10/2016 [facility] Procedures Procedure Code Date Perfomer Comments Source Circumcision, surgical excision other than clamp, device or dorsal slit; [address] 1993 [facility] Plan of Care Social History Assessment and Plan Family History Advance Directives Functional Status
[2017-03-20 20:43] LABS: BILIRUBIN,URINE NEGATIVE (NEGATIVE); CLARITY,URINE CLEAR; COLOR,URINE YELLOW; GLUCOSE, URINE (UA) NEGATIVE (NEGATIVE); KETONES,URINE NEGATIVE (NEGATIVE); LEUKOCYTE ESTERASE ,URINE NEGATIVE (NEGATIVE); NITRITE,URINE NEGATIVE (NEGATIVE); PH,URINE 6.5 (5-9); PROTEIN,URINE NEGATIVE (NEGATIVE); UROBILINOGEN,URINE NORMAL (NORMAL)
[2017-03-20 20:50] LABS: BACTERIA,URINE NEGATIVE /HPF
[2017-03-20] MEDS ORDERED: PERM60CR4 TP (20:50)
--- NOTE | 2017-03-20 20:50 | ED General ---
General Chief Complaint: General Problems/Pain Stated Complaint: FEVER,N/V,BODY ACHES Nursing Triage Note: PT TO ED 5 W/ C/O "JUST GETTING OVER FLU LIKE SYMPTOMS", AND POSS SCABIES-LIKE RASH. PT REPORTS HE IS TO GO BACK TO WORK TOMORROW. PT UNABLE TO SIT STILL, MOVING ALL ABOUT Nursing Sepsis Screen: No Definite Risk Source of Information: Patient Exam Limitations: No Limitations History of Present Illness Time Seen by Provider: 20:47 Initial Comments To ER with reports of "just getting over flu like symptoms". He has been having malaise nausea vomiting and diarrhea but all of the symptoms seem to be improving today. He believes that he has scabies as well due to a rash on the wrists bilaterally that he thinks his kids brought home to him. Timing/Duration: 1-2 Days Severity: Moderate Associated Systoms: No Cough, Malaise, Nausea/Vomiting Allergies and Home Medications Allergies Coded Allergies: No Known Drug Allergies (Unverified , 09/03/16) Home Medications Permethrin 60 Gm Cream..g., 60 GM TP ONCE, #2 Prescribed by: STELLA PEREZ on 03/20/172049 Constitutional: see HPI EENTM: see HPI Respiratory: no symptoms reported Cardiovascular: no symptoms reported Genitourinary: no symptoms reported Musculoskeletal: no symptoms reported Skin: no symptoms reported Psychiatric/Neurological: No Symptoms Reported Hematologic/Lymphatic: No Symptoms Reported Past Ixhnitu-Tpbzkk-Hbilzw Hx Patient Social History Alcohol Use: Denies Use Number of Drinks Today: FF Alcohol Beverage of Choice: Vodka Recreational Drug Use: No Drug of Choice: meth, benzos Smoking Status: Current Everyday Smoker Type Used: Cigarettes Recent Foreign Travel: No Contact w/Someone Who Travel: No Recent Infectious Disease Expo: No Recent Hopitalizations: No Physical Abuse: No Sexual Abuse: No Mistreated: No Fear: No Immunizations Up To Date Tetanus Booster (TDap): Unknown Seasonal Allergies Seasonal Allergies: No Surgeries History of Surgeries: No Respiratory History of Respiratory Disorde: No Currently Using CPAP: No Currently Using BIPAP: No Cardiovascular History of Cardiac Disorders: No Neurological History of Neurological Disord: No Reproductive System Hx Reproductive Disorders: No Genitourinary History of Genitourinary Disor: No Gastrointestinal History of Gastrointestinal Di: No Musculoskeletal History of Musculoskeletal Dis: No Endocrine History of Endocrine Disorders: No HEENT History of HEENT Disorders: No Cancer History of Cancer: No Psychosocial History of Psychiatric Problem: No Suicide Risk Score: 0 Integumentary History of Skin or Integumenta: No Blood Transfusions History of Blood Disorders: No Physical Exam Vital Signs Vital Sign - Last 12Hours 03/20/17 20:27 Temp 100.8 Pulse 118 Resp 20 B/P (MAP) 113/71 (85) Pulse Ox 96 Capillary Refill : Less Than 3 Seconds General Appearance: No Apparent Distress, WD/WN Eyes: Bilateral Eye Normal Inspection, Bilateral Eye PERRL, Bilateral Eye EOMI HEENT: PERRL/EOMI, TMs Normal Neck: Full Range of Motion, Normal Inspection Respiratory: No Accessory Muscle Use, No Respiratory Distress Cardiovascular: Regular Rate, Rhythm, Normal Peripheral Pulses Gastrointestinal: Normal Bowel Sounds, Non Tender, Soft Extremity: Normal Capillary Refill, Normal Inspection, Other (There is a rash to the dorsal and volar surface of the wrists bilaterally that is) Neurologic/Psychiatric: Alert, Oriented x3, No Motor/Sensory Deficits Skin: Normal Color, Warm/Dry Progress/Results/Core Measures Suspected Sepsis Recent Fever Within 48 Hours: No Infection Criteria Present: None New/Unexplained Altered Menta: No Sepsis Screen: No Definite Risk Sepsis Diagnosis: SIRS Temperature:100.8 Pulse: 118 Respiratory Rate: 20 Laboratory Tests 03/20/17 21:13: White Blood Count 6.8 Blood Pressure 113 /71 Mean: 85 Laboratory Tests 03/20/17 21:13: Platelet Count 260 Results/Orders Lab Results Laboratory Tests Test 03/20/17 20:33 03/20/17 21:13 Range/Units Urine Color YELLOW Urine Clarity CLEAR Urine pH 6.5 5-9 Urine Specific [place] 1.010 L 1.016-1.022 Urine Protein NEGATIVE NEGATIVE Urine Glucose (UA) NEGATIVE NEGATIVE Urine Ketones NEGATIVE NEGATIVE Urine Nitrite NEGATIVE NEGATIVE Urine Bilirubin NEGATIVE NEGATIVE Urine Urobilinogen NORMAL NORMAL MG/DL Urine Leukocyte Esterase NEGATIVE NEGATIVE Urine RBC (Auto) NEGATIVE NEGATIVE Urine RBC NONE /HPF Urine WBC NONE /HPF Urine Squamous Epithelial Cells NONE /HPF Urine Crystals NONE /LPF Urine Bacteria NEGATIVE /HPF Urine Casts NONE /LPF Urine Mucus NEGATIVE /LPF Urine Culture Indicated NO Urine Opiates Screen NEGATIVE NEGATIVE Urine Oxycodone Screen NEGATIVE NEGATIVE Urine Methadone Screen NEGATIVE NEGATIVE Urine Propoxyphene Screen NEGATIVE NEGATIVE Urine Barbiturates Screen NEGATIVE NEGATIVE Ur Tricyclic Antidepressants Screen NEGATIVE NEGATIVE Urine Phencyclidine Screen NEGATIVE NEGATIVE Urine Amphetamines Screen POSITIVE H NEGATIVE Urine Methamphetamines Screen POSITIVE H NEGATIVE Urine Benzodiazepines Screen NEGATIVE NEGATIVE Urine Cocaine Screen POSITIVE H NEGATIVE Urine Cannabinoids Screen NEGATIVE NEGATIVE White Blood Count 6.8 4.3-11.0 10^3/uL Red Blood Count 4.41 4.35-5.85 10^6/uL Hemoglobin 13.5 13.3-17.7 G/DL Hematocrit 37 L 40-54 % Mean Corpuscular Volume 85 80-99 FL Mean Corpuscular Hemoglobin 31 25-34 PG Mean Corpuscular Hemoglobin Concent 36 32-36 G/DL Red Cell Distribution Width 13.5 10.0-14.5 % Platelet Count 260 130-400 10^3/uL Mean Platelet Volume 9.4 7.4-10.4 FL Neutrophils (%) (Auto) 41 L 42-75 % Lymphocytes (%) (Auto) 50 H 12-44 % Monocytes (%) (Auto) 7 0-12 % Eosinophils (%) (Auto) 2 0-10 % Basophils (%) (Auto) 1 0-10 % Neutrophils # (Auto) 2.8 1.8-7.8 X 10^3 Lymphocytes # (Auto) 3.4 1.0-4.0 X 10^3 Monocytes # (Auto) 0.5 0.0-1.0 X 10^3 Eosinophils # (Auto) 0.1 0.0-0.3 10^3/uL Basophils # (Auto) 0.0 0.0-0.1 10^3/uL Micro Results Microbiology 03/20/17 Influenza Types A,B Antigen (STACY) - Final, Complete My Orders Orders - STELLA PEREZ APRN Cbc With Automated Diff (03/20/17 20:44) Comprehensive Metabolic Panel (03/20/17 20:44) Vital Signs/I&O Vital Sign - Last 12Hours 03/20/17 20:27 Temp 100.8 Pulse 118 Resp 20 B/P (MAP) 113/71 (85) Pulse Ox 96 Capillary Refill : Less Than 3 Seconds Blood Pressure Mean: 85 Departure Communication (Admissions) Progress Notes 2-went to room to update patient on plan and lab results. Patient is no longer in his room and appears to have snuck out. Impression Impression: Primary Impression: Scabies Additional Impression: Viral syndrome Disposition: AGAINST MEDICAL ADVICE Condition: Against Medical Advice Departure-Patient Inst. Decision time for Depature: 20:49 Referrals: NO,LOCAL PHYSICIAN (PCP/Family) Primary Care Physician Patient Instructions: Scabies, VIRAL SYNDROME Add. Discharge Instructions: 1. Apply the scabies lotion to her entire body from her neck to your toes. Leave in place for 8-12 hours then wash off in the shower. He may repeat in 1 week if necessary. All discharge instructions reviewed with patient and/or family. Voiced understanding. Scripts Permethrin (Permethrin) 60 Gm Cream..g. 60 GM TP ONCE, #2 TUBE Prov: STELLA PEREZ APRN 03/20/17 STELLA PEREZ APRN Mar 20, 2017 20:50
[2017-03-20 20:56] LABS: AMPHETAMINE SCREEN, URINE POSITIVE (NEGATIVE); BARBITURATE SCREEN URINE NEGATIVE (NEGATIVE); BENZODIAZEPINES SCREEN URINE NEGATIVE (NEGATIVE); CANNABINOID SCREEN, URINE NEGATIVE (NEGATIVE); COCAINE SCREEN URINE POSITIVE (NEGATIVE); METHADONE STAT NEGATIVE (NEGATIVE); METHAMPHETAMINE SCREEN URINE S POSITIVE (NEGATIVE); OPIATE SCREEN URINE NEGATIVE (NEGATIVE); OXYCODONE STAT NEGATIVE (NEGATIVE); PROPOXYPHENE STAT NEGATIVE (NEGATIVE); TRICYCLIC ANTIDEPRESSANTS SCRE NEGATIVE (NEGATIVE)
[2017-03-20 21:21] LABS: BASOPHILS % (AUTO) 1 % (0-10); EOSINOPHILS # (AUTO) 0.1 10^3/uL (0.0-0.3); EOSINOPHILS % (AUTO) 2 % (0-10); HEMATOCRIT 37 % (40-54); HEMOGLOBIN 13.5 G/DL (13.3-17.7); LYMPHOCYTES # (AUTO) 3.4 X 10^3 (1.0-4.0); LYMPHOCYTES % (AUTO) 50 % (12-44); MEAN CORPUSCULAR HEMOGLOBIN 31 PG (25-34); MEAN CORPUSCULAR HGB CONC 36 G/DL (32-36); MEAN CORPUSCULAR VOLUME 85 FL (80-99); MEAN PLATELET VOLUME 9.4 FL (7.4-10.4); MONOCYTES # (AUTO) 0.5 X 10^3 (0.0-1.0); MONOCYTES % (AUTO) 7 % (0-12); NEUTROPHILS # (AUTO) 2.8 X 10^3 (1.8-7.8); NEUTROPHILS % (AUTO) 41 % (42-75); PLATELET COUNT 260 10^3/uL (130-400); RED BLOOD COUNT 4.41 10^6/uL (4.35-5.85); RED CELL DISTRIBUTION WIDTH 13.5 % (10.0-14.5); WHITE BLOOD COUNT 6.8 10^3/uL (4.3-11.0)
[2017-03-20 21:49] LABS: ALANINE AMINOTRANSFERASE 32 U/L (0-55); ALKALINE PHOSPHATASE 61 U/L (40-136); BILIRUBIN,TOTAL 0.4 MG/DL (0.1-1.0); BUN/CREATININE RATIO 18; CARBON DIOXIDE 23 MMOL/L (21-32); CHLORIDE 107 MMOL/L (98-107); CREATININE SERUM 0.78 MG/DL (0.60-1.30); GFR ESTIMATED > 60; GLUCOSE 124 MG/DL (70-105); POTASSIUM 3.6 MMOL/L (3.6-5.0); SODIUM 142 MMOL/L (135-145); TOTAL PROTEIN 7.6 GM/DL (6.4-8.2)
[2017-03-20 21:54] VITALS: BP 0/0
== END 2017-03-20 21:54 | disposition left against medical advice (07) ==
LOC: EDUNIT# 20:07 → ER 20:09
DX: B86 Scabies (principal); B34.9 Viral infection, unspecified; F17.210 Nicotine dependence, cigarettes, uncomplicated
CPT/HCPCS: 36415; 80053; 80306; 81000; 85025; 87804; 99282